=== PATIENT | male | born 1965 | race African-American/Black ===

== ENCOUNTER 2018-02-17 11:57 | Inpatient (IN) | payer OTHER ==
--- NOTE | 2018-02-17 12:13 | PDOC ---
History of Present Illness - General Chief Complaint: Constipation Stated Complaint: CONSTIPATION Time Seen by Provider: 02/17/18 12:05 History Source: Patient Exam Limitations: No Limitations - History of Present Illness Initial Comments: This is a 53 YOM with h/o chronic constipation with abdominal distention (on Milk of Magnesia, recently self-discontinued lactulose because he did not like the way it made him feel), GERD, DM, CAD, anemia, HTN, HLD, COPD, and multiple psychiatric issues (schizoaffective, bipolar, major depression, on multiple medications) who is BIBA from [facility] for acutely worsened constipation and abdominal distention. On discussion with SNF ambulatory services representative, the patient has been about 50% more distended today than his baseline distention , and has never before been this distended. He normally has a bowel movement about once every two days, and his last known BM was yesterday after a Fleet enema. His abodminal XR today at [facility] showed large amount of fecal matter in pattern suggestive of ileus, SBO cannot be ruled out. They deny any reported fever, vomiting, diarrhea, or reports of pain. Mother is his his HCP and patient reportedly has no capacity and is full code on his SNF records. Past History - Past Medical History Allergies/Adverse Reactions: Allergies Allergy/AdvReac Type Severity Reaction Status Date / Time No Known Allergies Allergy Verified 02/17/18 12:44 Home Medications: Ambulatory Orders Albuterol 2.5/Ipratropium 0.5 [Duoneb -] 1 neb NEB Q4H PRN #0 vial 11/21/13 Amino Acids/Protein Hydrolys [Prostat Sugar-Free Packet -] 30 ml GT TID #0 packet 11/21/13 Amox-Tr/K Cl [Augmentin 500-125mg Tablet -] 1 tab GT TID #14 tab 11/21/13 Ascorbic Acid [Vitamin C Oral Solution -] 500 mg PO DAILY #150 ml 11/21/13 Aspirin [ASA -] 81 mg GT DAILY #0 tab.chew 11/21/13 Azithromycin [Zithromax Tri-Fareed (3 DAYS) -] 500 mg GT DAILY #3 tablet 11/21/13 Docusate Sodium [Colace -] 200 mg PO HS #0 capsule 11/21/13 Enoxaparin [Lovenox -] 40 mg SQ DAILY #0 disp.syrin 11/21/13 Ferrous Sulfate 325 mg GT DAILY #0 tablet 11/21/13 Guaifenesin [Robitussin -] 10 ml GT QID #0 cup 11/21/13 Lactulose (Oral Use) [Cephulac -] 20 gm GT TID #0 ud 11/21/13 Mosses Carbonate [Eskalith -] 300 mg NR BID #0 capsule 11/21/13 Mirtazapine [Remeron -] 15 mg GT HS #0 tablet 11/21/13 Multivitamin [Daily Diet Support] 1 each GT DAILY #0 tablet 11/21/13 Multivitamins Liquid [Thera-Plus -] 5 ml GT DAILY #0 cup 11/21/13 Olanzapine [Zyprexa -] 20 mg GT HS #0 tablet 11/21/13 Ranitidine Oral Solution [Zantac Oral Solution -] 150 mg GT DAILY #0 cup Thiamine HCl [Vitamin B1 -] 100 mg NR DAILY #0 tablet 11/21/13 Zinc Sulfate [Orazinc -] 220 mg GT DAILY #0 capsule 11/21/13 Zolpidem Tartrate [Ambien] 10 mg PO HS #0 tablet 11/21/13 CVA: Yes GI Disorders: (PEG) HTN: Yes Psychiatric Problems: Yes (Depression,Schizoaffective disorder) - Surgical History GI Surgery: Yes (G Tube) - Immunization History Immunization Up to Date: Yes - Suicide/Smoking/Psychosocial Hx Smoking History: Former smoker Have you smoked in the past 12 months: No Hx Alcohol Use: No Substance Use Type: None Review of Systems - Review of Systems Able to Perform ROS?: Yes Constitutional: No: Fever, Unexplained wgt Loss HEENTM: No: Nose Congestion, Throat Pain Respiratory: Yes: Shortness of Breath. No: Cough Cardiac (ROS): No: Chest Pain, Palpitations ABD/GI: Yes: Constipated. No: Diarrhea, Vomiting : No: Burning, Dysuria Musculoskeletal: No: Back Pain, Neck Pain Integumentary: No: Bruising, Rash Neurological: No: Headache, Numbness, Tingling, Weakness, Dizziness Endocrine: No: Unexplained Weight Gain, Unexplained Weight Loss *Physical Exam - Physical Exam General Appearance: Yes: Nourished, Appropriately Dressed, Moderate Distress, Other (uncomfortable appearing adult male answering questions in 1-2 word answers and quite tachypneic, slurred speech impediment making it difficult to comprehend most of his answers) HEENT: positive: EOMI, ITZEL, Hearing Grossly Normal. negative: Scleral Icterus (R), Scleral Icterus (L), Nasal Congestion Neck: positive: Trachea midline, Supple. negative: Tender, Rigid Respiratory/Chest: positive: Lungs Clear, Respiratory Distress (mild-moderate), Decreased Breath Sounds (L worse than R). negative: Crackles, Rhonchi, Stridor Cardiovascular: positive: Regular Rhythm, S1, S2, Tachycardia. negative: Edema , JVD, Murmur Gastrointestinal/Abdominal: positive: Normal Bowel Sounds, Distended (markedly) , Other (abdomen quite tight). negative: Tender, Soft, Organomegaly, Pulsatile Mass, Guarding Musculoskeletal: positive: Normal Inspection. negative: Decreased Range of Motion, Vertebral Tenderness Extremity: positive: Normal Capillary Refill, Normal Inspection, Normal Range of Motion. negative: Tender, Cyanosis Integumentary: positive: Normal Color, Dry, Warm. negative: Erythema, Rash, Bruising Neurologic: positive: transfer worker II-XII NML intact (grossly), Alert, Normal Response, Motor Strength 5/5. negative: Fully Oriented, EOM Palsy, Facial Droop Heart Score/ECG Review #1 Sinus tachycardia, rate of 110, normal axis, QTc is 476, no ischemic changes. ED Treatment Course - LABORATORY CBC & Chemistry Diagram: 02/17/18 12:33 02/17/18 12:33 Medical Decision Making - Critical Care Time Total Critical Care Time (minutes): 45 Critical Care Statement: The care of this patient involved high complexity decision making to prevent further life threatening deterioration of the patient 's condition and/or to evaluate & treat vital organ system(s) failure or risk of failure. - Medical Decision Making Patient p/w severe constipation and abdominal distention. Initial Vital Signs Pulse Resp BP Pulse Ox 112 H 24 164/114 100 02/17/18 12:00 02/17/18 12:00 02/17/18 12:00 02/17/18 12:00 Exam: Markedly distended and tight abdomen, tympanic percussion throughout, tinkling bowel sounds, decreased lung sounds on left, poor air movement. DDX IBNLT severe constipation, SBO, colitis and bacteremia, sepsis, bowel perforation, abdominal compartment syndrome, ascites, SBP, sepsis. W/U ordered: Sepsis order set (full w/u), CT A/P with IV Contrast, Ammonia level TX ordered: Vancomycin, Zosyn, DuoNebs. 02/17/18 12:50 Dr. Miles has spoken with SNF ambulatory services representative and Dr. Urban who will evaluate the patient. Consult order has been placed to Dr. Urban. Lab calls and reports ABG results pH 7.2, CO2 67. EKG: Sinus tachycardia, rate of 110, normal axis, no ischemic changes. CXR: shallow inspiration, pulmonary vascular congestion. CT: Severe constipation/fecal impaction, bilateral lower lung consolidation and likely PNA. Laboratory Tests 02/17/18 02/17/18 02/17/18 12:33 12:33 12:33 WBC 19.7 H D RBC 4.79 Hgb 13.1 Hct 41.8 MCV 87.4 MCH 27.4 MCHC 31.4 L RDW 14.8 Plt Count 435 H D MPV 10.4 Neutrophils % 84.5 H Lymphocytes % 11.1 D Monocytes % 3.5 L Eosinophils % 0.1 Basophils % 0.8 PT with INR 13.20 H INR 1.17 H PTT (Actin FS) 41.4 H Anticoagulation Therapy Puncture Site ABG pH ABG pCO2 at Pt Temp ABG pO2 at Pt Temp ABG HCO3 ABG O2 Sat (Measured) ABG O2 Content ABG Base Excess Ruiz Test Carboxyhemoglobin Methemoglobin O2 Delivery Device Oxygen Flow Rate Vent Mode Vent Rate Mechanical Rate Pressure Support Vent Sodium 137 Potassium 4.7 Chloride 104 Carbon Dioxide 25 Anion Gap 8 BUN 12 Creatinine 0.8 D Creat Clearance w eGFR > 60 Random Glucose 110 H Lactic Acid Calcium 10.9 H Total Bilirubin 0.4 AST 101 H D ALT 67 D Alkaline Phosphatase 59 D Ammonia Creatine Kinase 156 Creatine Kinase Index 1.9 CK-MB (CK-2) 3.006 Troponin I Total Protein 9.2 H D Albumin 4.6 D Blood Type Antibody Screen 02/17/18 02/17/18 02/17/18 12:33 12:33 12:33 WBC RBC Hgb Hct MCV MCH MCHC RDW Plt Count MPV Neutrophils % Lymphocytes % Monocytes % Eosinophils % Basophils % PT with INR INR PTT (Actin FS) Anticoagulation Therapy No Result Required. Puncture Site Left radial ABG pH 7.20 L* ABG pCO2 at Pt Temp 67.0 H* ABG pO2 at Pt Temp 62.2 L ABG HCO3 25.4 ABG O2 Sat (Measured) 87.6 L ABG O2 Content 15.5 ABG Base Excess -3.5 L Ruiz Test No Result Required. Carboxyhemoglobin 1.6 Methemoglobin 1.2 O2 Delivery Device No Result Required. Oxygen Flow Rate No Result Required. Vent Mode No Result Required. Vent Rate No Result Required. Mechanical Rate No Result Required. Pressure Support Vent No Result Required. Sodium Potassium Chloride Carbon Dioxide Anion Gap BUN Creatinine Creat Clearance w eGFR Random Glucose Lactic Acid 2.6 H* Calcium Total Bilirubin AST ALT Alkaline Phosphatase Ammonia Creatine Kinase Creatine Kinase Index CK-MB (CK-2) Troponin I < 0.02 Total Protein Albumin Blood Type Antibody Screen 02/17/18 02/17/18 02/17/18 12:33 12:33 12:33 WBC RBC Hgb Hct MCV MCH MCHC RDW Plt Count MPV Neutrophils % Lymphocytes % Monocytes % Eosinophils % Basophils % PT with INR INR PTT (Actin FS) Anticoagulation Therapy Puncture Site ABG pH ABG pCO2 at Pt Temp ABG pO2 at Pt Temp ABG HCO3 ABG O2 Sat (Measured) ABG O2 Content ABG Base Excess Ruiz Test Carboxyhemoglobin Methemoglobin O2 Delivery Device Oxygen Flow Rate Vent Mode Vent Rate Mechanical Rate Pressure Support Vent Sodium Potassium Chloride Carbon Dioxide Anion Gap BUN Creatinine Creat Clearance w eGFR Random Glucose Lactic Acid Calcium Total Bilirubin AST ALT Alkaline Phosphatase Ammonia 65.79 H Creatine Kinase Creatine Kinase Index CK-MB (CK-2) 3.006 Troponin I Total Protein Albumin Blood Type Cancelled Antibody Screen Cancelled Dr. Urban comes to assess patient at bedside. Rectal disimpaction performed with marked amount of brown stool removed, passes large amount of gas. Patient reports significant relief of abdominal discomfort after disimpaction. Repeat abdominal exam much softer, no ttp, no guarding, no fluid wave. The patient is unsafe for discharge at this time. They require further hospital observation, workup, and treatment. Microblog sent to [facility] for admission. Spoke with [facility], in agreement patient to be admitted to Tele Inpatient Dr. Han. Decision to Admit order placed to [facility] covering attending. *DC/Admit/Observation/Transfer Diagnosis at time of Disposition: COPD exacerbation Pneumonia Qualifiers: Pneumonia type: due to unspecified organism Laterality: unspecified laterality Lung location: unspecified part of lung Qualified Code(s): J18.9 - Pneumonia, unspecified organism Constipation Qualifiers: Constipation type: unspecified constipation type Qualified Code(s): K59.00 - Constipation, unspecified Sepsis Qualifiers: Sepsis type: sepsis due to unspecified organism Qualified Code(s): A41.9 - Sepsis, unspecified organism - Discharge Dispostion Condition at time of disposition: Guarded Admit: Yes - Referrals - Patient Instructions - Post Discharge Activity
--- NOTE | 2018-02-17 12:49 | PDOC ---
Attending Attestation - Resident Resident Name: Abbie Garcia - ED Attending Attestation I have performed the following: I have examined & evaluated the patient, The case was reviewed & discussed with the resident, I agree w/resident's findings & plan, Exceptions are as noted - HPI HPI: 02/17/18 12:34 53-year-old male with past medical history of COPD, hypertension, diabetes, hyperlipidemia, coronary disease, schizoaffective disorder, bipolar disorder from snf [facility] presents with abdominal distention and constipation and shortness of breath. I have spoken and discussed the case with nurse Arlene at [facility]. The patient is typically constipated and moves his bowels every other day. The patient has when necessary orders for milk of magnesia if he does not move his bowels on the third day. The patient himself had self discontinued lactulose was constipation. Yesterday, the patient had a Fleet enema which helped moved his bowels. This morning, the same nurse had noticed that the patient's abdomen is significantly much more distended than usual in the patient's been constipated. He's been complaining about some abdominal discomfort but there was no fevers, nausea, vomiting. No fevers. The patient is speaking comfortably though he feels short of breath. Denies chest pain. Upon arrival to the ED, the patient's O2 sat fissures 78 on nasal cannula but 100% on nonrebreather. He is protecting his airway. The patient is full code according to the nurse but has no capacity to make decisions according to the paperwork. I had attempted to reach out to the patient's surrogate, Keyana Banegas, but was unable to reach her and left a voicemail to contact me. - Physicial Exam PE: 02/17/18 12:49 GENERAL: Awake, alert. Speaking in full sentences. HEAD: No signs of trauma EYES: PERRLA, EOMI, sclera anicteric, conjunctiva clear ENT: Auricles normal inspection, hearing grossly normal, nares patent, NECK: Normal ROM, supple LUNGS: Tight breath sounds, occasional crackles in lower bases bilaterally. HEART: Regular rate and rhythm, normal S1 and S2, no murmurs, rubs or gallops ABDOMEN: Significantly distended with discomfort elicited on palpation throughout. EXTREMITIES: Normal range of motion, no edema. NEUROLOGICAL: Cranial nerves II through XII grossly intact. SKIN: Warm, Dry, normal turgor, no rashes or lesions noted. - Critical Care Time Total Critical Care Time: 35 Critical Care Statement: The care of this patient involved high complexity decision making to prevent further life threatening deterioration of the patient 's condition and/or to evaluate & treat vital organ system(s) failure or risk of failure. - Medical Decision Making 02/17/18 12:56 Patient is significantly distended and likely constipation. Abdominal x-ray that was obtained today demonstrates significant distention with ileus but cannot rule out obstruction. The patient has a strong history of constipation. This may be contributing to his hypoxia which may be secondary to his COPD. The arterial blood gas suggests that he may be having COPD exacerbation with a pH is 7.2 and elevated carbon dioxide level. We will trial nebulizers. We'll obtain a CAT scan the abdomen pelvis. Differential includes constipation, Sterkel colitis. I had consulted general surgeon Dr. Urban in regards to his findings and potentially to rule out abdominal compartment syndrome. The patient otherwise is alert and generally comfortable despite his abnormal vital signs. Patient will need very close monitoring. And admission to the hospital. 02/17/18 15:14 CBC, BMP 02/17/18 12:33 02/17/18 12:33 CMP Sodium 137 mmol/L (136-145) 02/17/18 12:33 Potassium 4.7 mmol/L (3.5-5.1) 02/17/18 12:33 Chloride 104 mmol/L (98-107) 02/17/18 12:33 Carbon Dioxide 25 mmol/L (21-32) 02/17/18 12:33 Anion Gap 8 (8-16) 02/17/18 12:33 BUN 12 mg/dL (7-18) 02/17/18 12:33 Creatinine 0.8 mg/dL (0.7-1.3) D 02/17/18 12:33 Creat Clearance w eGFR > 60 (>60) 02/17/18 12:33 Random Glucose 110 mg/dL (74-106) H 02/17/18 12:33 Lactic Acid 2.6 mmol/L (0.0-2.0) H* 02/17/18 12:33 Calcium 10.9 mg/dL (8.5-10.1) H 02/17/18 12:33 Total Bilirubin 0.4 mg/dL (0.2-1.0) 02/17/18 12:33 AST 101 U/L (15-37) H D 02/17/18 12:33 ALT 67 U/L (12-78) D 02/17/18 12:33 Alkaline Phosphatase 59 U/L (45-117) D 02/17/18 12:33 Ammonia 65.79 umol/L (11-32) H 02/17/18 12:33 Creatine Kinase 156 IU/L (39-308) 02/17/18 12:33 Creatine Kinase Index 1.9 % (0.0-5.0) 02/17/18 12:33 CK-MB (CK-2) 3.006 ng/mL (0.5-3.6) 02/17/18 12:33 Troponin I < 0.02 ng/ml (0.00-0.05) 02/17/18 12:33 Total Protein 9.2 g/dl (6.4-8.2) H D 02/17/18 12:33 Albumin 4.6 g/dl (3.4-5.0) D 02/17/18 12:33 CT abdomen and pelvis with significant constipation. Dr. urban present at bedside. Fecal disimpaction performed with significant improvement in symptoms. Significant stool extracted. However, with WBC 19.7, elevated lactic acid, and SOB (now resolved on home O2) , will treat as reactive airway disease/COPD. Nebs, steroids, IV antibiotics. Cultures were obtained. Will admit patient to the hospital. Findings discussed with pt's mother Ms. Banegas [phone]. 02/17/18 15:33 Bilateral pneumonia. Will admit for IV antibiotics. Heart Score/ECG Review #1 ECG reviewed & interpreted by me at: 12:30 02/17/18 12:33 NSR 110, no std/bright, normal axis, normal intervals, QTC 476 msec
[2018-02-17 12:51] LABS: ARTERIAL BLD GAS O2 SATURATION 87.6 % (90-98.9); ARTERIAL BLOOD GAS BASE EXCESS -3.5 meq/l (-2-2); ARTERIAL BLOOD GAS PO2 62.2 mmHg (80-100); CARBOXYHEMOGLOBIN 1.6 gm% (0.5-2.0)
[2018-02-17 12:52] LABS: BASO % 0.8 % (0-2.0); EOS % 0.1 % (0-4.5); HEMATOCRIT 41.8 % (35.4-49); HEMOGLOBIN 13.1 GM/dL (11.7-16.9); LYMPH % 11.1 % (8-40); MCH 27.4 pg (25.7-33.7); MCHC 31.4 g/dl (32.0-35.9); MEAN CELL VOLUME 87.4 fl (80-96); MEAN PLT VOLUME 10.4 fl (7.5-11.1); MONO % 3.5 % (3.8-10.2); NEUT % 84.5 % (42.8-82.8); PLATELET COUNT 435 K/MM3 (134-434); RBC 4.79 M/mm3 (4.00-5.60); RDW 14.8 % (11.9-15.9); WHITE BLOOD COUNT 19.7 K/mm3 (4.0-10.0)
[2018-02-17] MEDS ORDERED: ALBUTEROL SO4 2.5/IPRATROPIUM 0.5 INH SOL 3 ML VIAL.NEB. NEB ONE (12:57)
--- NOTE | 2018-02-17 13:06 | CONSULT ---
Consult Consult Specialty:: general surgery Referred by:: trent Reason for Consultation:: abdominal distension - History of Present Illness Chief Complaint: abddominal distension/ constipation History of Present Illness: 53-year-old male with past medical history of COPD, hypertension, diabetes, hyperlipidemia, coronary disease, schizoaffective disorder, bipolar disorder from snf [facility] presents with abdominal distention and constipation and shortness of breath. I have spoken and discussed the case with nurse Arlene at [facility]. The patient is typically constipated and moves his bowels every other day. The patient has when necessary orders for milk of magnesia if he does not move his bowels on the third day. The patient himself had self discontinued lactulose was constipation. Yesterday, the patient had a Fleet enema which helped moved his bowels. This morning, the same nurse had noticed that the patient's abdomen is significantly much more distended than usual in the patient's been constipated. Ct scan shows significant colonic and rectal stool burden. We were asked to assess. - History Source History Provided By: Patient, Medical Record Limitations to Obtaining History: No Limitations - Alcohol/Substance Use Hx Alcohol Use: No - Smoking History Smoking history: Former smoker Have you smoked in the past 12 months: No Home Medications - Allergies Allergies/Adverse Reactions: Allergies Allergy/AdvReac Type Severity Reaction Status Date / Time No Known Allergies Allergy Verified 02/17/18 12:44 - Home Medications Home Medications: Ambulatory Orders Albuterol 2.5/Ipratropium 0.5 [Duoneb -] 1 neb NEB Q4H 02/17/18 Aspirin [ASA -] 81 mg PO DAILY 02/17/18 Cholecalciferol (Vitamin D3) [Vitamin D3] 1,000 unit PO DAILY 02/17/18 Fenofibrate Nanocrystallized [Triglide] 160 mg PO DAILY 02/17/18 [place] Carbonate [Eskalith -] 300 mg PO BID 02/17/18 Magnesium Hydroxide [Milk of Magnesia] 400 mg PO PRN 02/17/18 Melatonin/Pyridoxine HCl (B6) [Melatonin 3 mg Tablet] 1 each PO HS 02/17/18 Metformin HCl 500 mg PO BID 02/17/18 Olanzapine [Zyprexa] 20 mg PO DAILY 02/17/18 Review of Systems - Review of Systems Constitutional: denies: Chills, Fever Eyes: denies: Blind Spots, Recent Change in Vision HENT: denies: Difficult Swallowing, Throat Pain Neck: denies: Pain on Movement, Tenderness Cardiovascular: denies: Chest Pain, Palpitations Respiratory: denies: Cough, SOB Gastrointestinal: reports: Abdominal Pain, Bloating, Constipation Genitourinary: denies: Burning, Dysuria, Flank Pain Breasts: reports: No Symptoms Reported. denies: Pain Musculoskeletal: denies: Muscle Pain, Muscle Weakness Integumentary: denies: Lesions, Rash Neurological: denies: Syncope, Tremors Endocrine: denies: Unexplained Weight Gain, Unexplained Weight Loss Hematology/Lymphatic: denies: Easily Bruised, Excessive Bleeding Psychiatric: denies: Anxiety, Depression Physical Exam Vital Signs: Vital Signs Temperature Pulse Rate 112 H 02/17/18 12:00 Respiratory Rate 24 02/17/18 12:00 Blood Pressure 164/114 02/17/18 12:00 O2 Sat by Pulse Oximetry (%) 100 02/17/18 12:00 Constitutional: Yes: Well Nourished, No Distress Eyes: Yes: Conjunctiva Clear, EOM Intact HENT: Yes: Atraumatic, Normocephalic Neck: Yes: Supple, Trachea Midline Cardiovascular: Yes: Regular Rate and Rhythm, S1, S2 Respiratory: Yes: Regular, CTA Bilaterally Gastrointestinal: Yes: Normal Bowel Sounds, Soft, Distention ...Rectal Exam: Yes: Sphincter Tone Normal, Other (hard brown stool in the rectum, manually disimpacted) Renal/: No: CVA Tenderness - Left, CVA Tenderness - Right Imaging - Results Cat Scan: Report Reviewed, Image Reviewed (fecal impaction, significant stool burden entire colon) Problem List - Problems (1) Fecal impaction in rectum Assessment/Plan: 53yo male MMP presented with massive abdominal distension secondary to fecal impaction in the rectum. manually disimpacted at the bedside NPO and IVF hydration Correct electrolytes repeated disimpaction GI evaluation enemas and consider golytely PO Thank you for the opportunity to participate in the care of this patient. Code(s): K56.41 - FECAL IMPACTION (2) Schizo-affective schizophrenia Code(s): F25.0 - SCHIZOAFFECTIVE DISORDER, BIPOLAR TYPE (3) COPD exacerbation Code(s): J44.1 - CHRONIC OBSTRUCTIVE PULMONARY DISEASE W (ACUTE) EXACERBATION (4) Constipation Code(s): K59.00 - CONSTIPATION, UNSPECIFIED Qualifiers: Constipation type: unspecified constipation type Qualified Code(s): K59.00 - Constipation, unspecified
[2018-02-17 13:26] LABS: ALBUMIN 4.6 g/dl (3.4-5.0); ANION GAP 8 (8-16); BILIRUBIN,TOTAL 0.4 mg/dL (0.2-1.0); BLOOD UREA NITROGEN 12 mg/dL (7-18); CALCIUM 10.9 mg/dL (8.5-10.1); CHLORIDE 104 mmol/L (98-107); CO2 25 mmol/L (21-32); CREATININE 0.8 mg/dL (0.7-1.3); GLUCOSE,RANDOM 110 mg/dL (74-106); SGPT/ALT 67 U/L (12-78); SODIUM 137 mmol/L (136-145); TOT PROT 9.2 g/dl (6.4-8.2)
[2018-02-17 13:28] LABS: ALK PHOS 59 U/L (45-117)
[2018-02-17 13:29] LABS: POTASSIUM 4.7 mmol/L (3.5-5.1); SGOT/AST 101 U/L (15-37)
[2018-02-17 13:37] LABS: INR 1.17 (0.82-1.09); PROTHROMBIN TIME (PATIENT) 13.2 SEC (9.7-13.0)
[2018-02-17 13:40] LABS: ACTIVATED PTT 41.4 SECONDS (26.9-34.4)
[2018-02-17 13:48] VITALS: BMI 28.4
[2018-02-17] MEDS ORDERED: PIPERACILLIN/TAZOB 3.375 GM 3.375 GM in DEXTROSE 5%-WATER - 50 ML IVPB ONE ×2 (15:10→23:00)
[2018-02-17] MEDS ORDERED: PIPERACILLIN/TAZOB 3.375 GM 3.375 GM/50 ML BAG IVPB ONE ×2 (15:30→22:09)
[2018-02-17] MEDS ORDERED: VANCOMYCIN 1,500 MG in DEXTROSE 5%-WATER - 250 ML IVPB ONE (15:36)
[2018-02-17] MEDS ORDERED: VANCOMYCIN 1,500 MG in DEXTROSE 5%-WATER - 500 ML IVPB ONE (16:06)
[2018-02-17] MEDS ORDERED: ALBUTEROL SO4 2.5/IPRATROPIUM 0.5 INH SOL 3 ML VIAL.NEB. NEB PRN (16:23)
[2018-02-17] MEDS ORDERED: SODIUM CHLORIDE 1,000 ML IV SCH (16:30)
[2018-02-17] MEDS ORDERED: MAGNESIUM HYDROX 2400MG/30ML ORAL SUSPENSION 30 ML CUP PO PRN (16:34)
[2018-02-17] MEDS: INSULIN SLIDING SCALE (NOVOLOG) 1 VIAL SQ SCH ×2 (16:46→22:04)
--- NOTE | 2018-02-17 16:59 | HP ---
CHIEF COMPLAINT: Abdominal Distention PCP: Clarence Downey HISTORY OF PRESENT ILLNESS: 53 year old M with pmh of copd, htn, hld, dm, chronic constipation, CAD, schizoaffective disorder, and bipolar presented with abdominal distention and was disimpacted in the ER. Patient also hypoxic on presentation. Patient with increased sob and mild cough. History difficult to obtain 2/2 to patient's lethargy. ER course was notable for: (1) labs- leukocytosis (2) tachycardia (3) lactic acid Recent Travel: unsure PAST MEDICAL HISTORY: as per hpi PAST SURGICAL HISTORY: unsure Social History: Smoking: unsure Alcohol: unsure Drugs: unsure Family History: Allergies No Known Allergies Allergy (Verified 02/17/18 12:44) HOME MEDICATIONS: Home Medications Medication Instructions Recorded Albuterol 2.5/Ipratropium 0.5 1 neb NEB Q4H PRN #0 vial 11/21/13 [Duoneb -] Amino Acids/Protein Hydrolys 30 ml GT TID #0 packet 11/21/13 [Prostat Sugar-Free Packet -] Amox-Tr/K Cl [Augmentin 500-125mg 1 tab GT TID #14 tab 11/21/13 Tablet -] Ascorbic Acid [Vitamin C Oral 500 mg PO DAILY #150 ml 11/21/13 Solution -] Aspirin [ASA -] 81 mg GT DAILY #0 tab.chew 11/21/13 Azithromycin [Zithromax Tri-Fareed (3 500 mg GT DAILY #3 tablet 11/21/13 DAYS) -] Docusate Sodium [Colace -] 200 mg PO HS #0 capsule 11/21/13 Enoxaparin [Lovenox -] 40 mg SQ DAILY #0 disp.syrin 11/21/13 Ferrous Sulfate 325 mg GT DAILY #0 tablet 11/21/13 Guaifenesin [Robitussin -] 10 ml GT QID #0 cup 11/21/13 Lactulose (Oral Use) [Cephulac -] 20 gm GT TID #0 ud 11/21/13 [place] Carbonate [Eskalith -] 300 mg NR BID #0 capsule 11/21/13 Mirtazapine [Remeron -] 15 mg GT HS #0 tablet 11/21/13 Multivitamin [Daily Diet Support] 1 each GT DAILY #0 tablet 11/21/13 Multivitamins Liquid [Thera-Plus -] 5 ml GT DAILY #0 cup 11/21/13 Olanzapine [Zyprexa -] 20 mg GT HS #0 tablet 11/21/13 Ranitidine Oral Solution [Zantac 150 mg GT DAILY #0 cup 11/21/13 Oral Solution -] Thiamine HCl [Vitamin B1 -] 100 mg NR DAILY #0 tablet 11/21/13 Zinc Sulfate [Orazinc -] 220 mg GT DAILY #0 capsule 11/21/13 Zolpidem Tartrate [Ambien] 10 mg PO HS #0 tablet 11/21/13 REVIEW OF SYSTEMS CONSTITUTIONAL: Absent: fever, chills, diaphoresis, generalized weakness, malaise, loss of appetite, weight change HEENT: Absent: rhinorrhea, nasal congestion, throat pain, throat swelling, difficulty swallowing, mouth swelling, ear pain, eye pain, visual changes CARDIOVASCULAR: Absent: chest pain, syncope, palpitations, irregular heart rate, lightheadedness , peripheral edema RESPIRATORY: Absent: cough, shortness of breath, dyspnea with exertion, orthopnea, wheezing, stridor, hemoptysis GASTROINTESTINAL: Absent: abdominal pain, abdominal distension, nausea, vomiting, diarrhea, constipation, melena, hematochezia GENITOURINARY: Absent: dysuria, frequency, urgency, hesitancy, hematuria, flank pain, genital pain MUSCULOSKELETAL: Absent: myalgia, arthralgia, joint swelling, back pain, neck pain SKIN: Absent: rash, itching, pallor HEMATOLOGIC/IMMUNOLOGIC: Absent: easy bleeding, easy bruising, lymphadenopathy, frequent infections ENDOCRINE: Absent: unexplained weight gain, unexplained weight loss, heat intolerance, cold intolerance NEUROLOGIC: Absent: headache, focal weakness or paresthesias, dizziness, unsteady gait, seizure, mental status changes, bladder or bowel incontinence PSYCHIATRIC: Absent: anxiety, depression, suicidal or homicidal ideation, hallucinations. PHYSICAL EXAMINATION Vital Signs - 24 hr 02/17/18 02/17/18 02/17/18 12:00 12:01 12:14 Temperature 99.0 F Pulse Rate 112 H 104 H Respiratory 24 34 H Rate Blood Pressure 164/114 135/113 O2 Sat by Pulse 100 81 L Oximetry (%) 02/17/18 13:11 Temperature 99.0 F Pulse Rate 102 H Respiratory 15 Rate Blood Pressure 140/110 O2 Sat by Pulse 100 Oximetry (%) GENERAL: Awake, alert, appears uncomfortable, Difficult to understand HEAD: Normal with no signs of trauma. EYES: Extraocular movements intact, sclera anicteric, conjunctiva clear. No lid lag. EARS, NOSE, THROAT: Oropharynx clear without exudates. Dry mucous membranes. NECK: Normal range of motion, supple without lymphadenopathy, JVD, or masses. LUNGS: Breath sounds decreased at bases, mild wheezing bilaterally. No accessory muscle use HEART: Regular rhythm, tachycardic, normal S1 and S2 without murmur, rub or gallop. ABDOMEN: Soft, nontender, not distended, normoactive bowel sounds, no guarding, no rebound, no masses. No hepatomegaly or splenomegaly. MUSCULOSKELETAL: No CVA tenderness. UPPER EXTREMITIES: 2+ pulses, warm, well-perfused. No cyanosis. No clubbing. No peripheral edema. LOWER EXTREMITIES: 2+ pulses, warm, well-perfused. No calf tenderness. No peripheral edema. Laboratory Results - last 24 hr 02/17/18 02/17/18 02/17/18 12:33 12:33 12:33 WBC 19.7 H D RBC 4.79 Hgb 13.1 Hct 41.8 MCV 87.4 MCH 27.4 MCHC 31.4 L RDW 14.8 Plt Count 435 H D MPV 10.4 Neutrophils % 84.5 H Lymphocytes % 11.1 D Monocytes % 3.5 L Eosinophils % 0.1 Basophils % 0.8 PT with INR 13.20 H INR 1.17 H PTT (Actin FS) 41.4 H Anticoagulation Therapy Puncture Site ABG pH ABG pCO2 at Pt Temp ABG pO2 at Pt Temp ABG HCO3 ABG O2 Sat (Measured) ABG O2 Content ABG Base Excess Ruiz Test Carboxyhemoglobin Methemoglobin O2 Delivery Device Oxygen Flow Rate Vent Mode Vent Rate Mechanical Rate Pressure Support Vent Sodium 137 Potassium 4.7 Chloride 104 Carbon Dioxide 25 Anion Gap 8 BUN 12 Creatinine 0.8 D Creat Clearance w eGFR > 60 Random Glucose 110 H Lactic Acid Calcium 10.9 H Total Bilirubin 0.4 AST 101 H D ALT 67 D Alkaline Phosphatase 59 D Ammonia Creatine Kinase 156 Creatine Kinase Index 1.9 CK-MB (CK-2) 3.006 Troponin I Total Protein 9.2 H D Albumin 4.6 D Blood Type Antibody Screen 02/17/18 02/17/18 02/17/18 12:33 12:33 12:33 WBC RBC Hgb Hct MCV MCH MCHC RDW Plt Count MPV Neutrophils % Lymphocytes % Monocytes % Eosinophils % Basophils % PT with INR INR PTT (Actin FS) Anticoagulation Therapy No Result Required. Puncture Site Left radial ABG pH 7.20 L* ABG pCO2 at Pt Temp 67.0 H* ABG pO2 at Pt Temp 62.2 L ABG HCO3 25.4 ABG O2 Sat (Measured) 87.6 L ABG O2 Content 15.5 ABG Base Excess -3.5 L Ruiz Test No Result Required. Carboxyhemoglobin 1.6 Methemoglobin 1.2 O2 Delivery Device No Result Required. Oxygen Flow Rate No Result Required. Vent Mode No Result Required. Vent Rate No Result Required. Mechanical Rate No Result Required. Pressure Support Vent No Result Required. Sodium Potassium Chloride Carbon Dioxide Anion Gap BUN Creatinine Creat Clearance w eGFR Random Glucose Lactic Acid 2.6 H* Calcium Total Bilirubin AST ALT Alkaline Phosphatase Ammonia Creatine Kinase Creatine Kinase Index CK-MB (CK-2) Troponin I < 0.02 Total Protein Albumin Blood Type Antibody Screen 02/17/18 02/17/18 02/17/18 12:33 12:33 12:33 WBC RBC Hgb Hct MCV MCH MCHC RDW Plt Count MPV Neutrophils % Lymphocytes % Monocytes % Eosinophils % Basophils % PT with INR INR PTT (Actin FS) Anticoagulation Therapy Puncture Site ABG pH ABG pCO2 at Pt Temp ABG pO2 at Pt Temp ABG HCO3 ABG O2 Sat (Measured) ABG O2 Content ABG Base Excess Ruiz Test Carboxyhemoglobin Methemoglobin O2 Delivery Device Oxygen Flow Rate Vent Mode Vent Rate Mechanical Rate Pressure Support Vent Sodium Potassium Chloride Carbon Dioxide Anion Gap BUN Creatinine Creat Clearance w eGFR Random Glucose Lactic Acid Calcium Total Bilirubin AST ALT Alkaline Phosphatase Ammonia 65.79 H Creatine Kinase Creatine Kinase Index CK-MB (CK-2) 3.006 Troponin I Total Protein Albumin Blood Type Cancelled Antibody Screen Cancelled ASSESSMENT/PLAN: 53 year old M with multiple medical comorbidities presented with abdominal distention and sob #Severe sepsis 2/2 to bilateral pneumonia -ns @ 75 cc/hr -repeat lactic acid -zosyn 3.375 q8h -ID consult -monitor respiratory status #Acute hypercapnic hypoxemic respiratory failure -Duonebs prn/donnie qid -o2 as needed to maintain sats -pulmonary consult #Constipation with elevated ammonia level -milk of mag -lactulose 20 mg tid prn #CAD -continue aspirin #DM -bgm -iss -avoid hypoglycemic events -hold oral hypoglycemics #Bipolar d/o -continue lithium and zyprexa -will check lithium level #FEN/GI -IVF @ 75 cc/hr -wnl -diabetic diet #PPx -Heparin sq q8h #Dispo: Adm M/S Mother is health care proxy and patient has no decision making capacity Home meds were confirmed with Clarence on Downey paperwork Pt's mother Ms. Banegas [phone] Visit type - Emergency Visit Emergency Visit: Yes ED Registration Date: 02/17/18 Care time: The patient presented to the Emergency Department on the above date and was hospitalized for further evaluation of their emergent condition. - New Patient This patient is new to me today: Yes Date on this admission: 02/17/18 - Critical Care Critical Care patient: No Hospitalist Screening - Colonoscopy Questionnaire Colonoscopy Questionnaire: Colonoscopy Questionnaire - Patient: 50 - 75 years old and never had a screening colonoscopy: Unknown History of colon or rectal polyps, or CA: Unknown History of IBD, Crohn's disease or UC: Unknown History of abdominal radiation therapy as a child: Unknown - Relative: 1 with colon or rectal CA, or polyps at age 60 or younger: Unknown Colon or rectal CA diagnosed at age 45 or younger: Unknown Multiple relatives with colon or rectal CA: Unknown - Outcome: Screening Result: Negative Screen
[2018-02-17] MEDS ORDERED: LACTULOSE 20 GM/30 ML UDC (FOR ORAL USE ONLY) PO PRN (17:11)
--- NOTE | 2018-02-17 19:29 | PN ---
Teaching Attending Note Name of Resident: Isaac Huber ATTENDING PHYSICIAN STATEMENT I saw and evaluated the patient. I reviewed the resident's note and discussed the case with the resident. I agree with the resident's findings and plan as documented. SUBJECTIVE: Patient presented with Shortness of breath. patient can't give any history. OBJECTIVE: Vital Signs Temperature 98.0 F 02/17/18 16:23 Pulse Rate 88 02/17/18 17:52 Respiratory Rate 16 02/17/18 17:52 Blood Pressure 102/65 02/17/18 17:52 O2 Sat by Pulse Oximetry (%) 92 L 02/17/18 17:52 CBCD WBC 19.7 K/mm3 (4.0-10.0) H D 02/17/18 12:33 RBC 4.79 M/mm3 (4.00-5.60) 02/17/18 12:33 Hgb 13.1 GM/dL (11.7-16.9) 02/17/18 12:33 Hct 41.8 % (35.4-49) 02/17/18 12:33 MCV 87.4 fl (80-96) 02/17/18 12:33 MCHC 31.4 g/dl (32.0-35.9) L 02/17/18 12:33 RDW 14.8 % (11.9-15.9) 02/17/18 12:33 Plt Count 435 K/MM3 (134-434) H D 02/17/18 12:33 MPV 10.4 fl (7.5-11.1) 02/17/18 12:33 CMP Sodium 137 mmol/L (136-145) 02/17/18 12:33 Potassium 4.7 mmol/L (3.5-5.1) 02/17/18 12:33 Chloride 104 mmol/L (98-107) 02/17/18 12:33 Carbon Dioxide 25 mmol/L (21-32) 02/17/18 12:33 Anion Gap 8 (8-16) 02/17/18 12:33 BUN 12 mg/dL (7-18) 02/17/18 12:33 Creatinine 0.8 mg/dL (0.7-1.3) D 02/17/18 12:33 Creat Clearance w eGFR > 60 (>60) 02/17/18 12:33 Random Glucose 110 mg/dL (74-106) H 02/17/18 12:33 Calcium 10.9 mg/dL (8.5-10.1) H 02/17/18 12:33 Total Bilirubin 0.4 mg/dL (0.2-1.0) 02/17/18 12:33 AST 101 U/L (15-37) H D 02/17/18 12:33 ALT 67 U/L (12-78) D 02/17/18 12:33 Alkaline Phosphatase 59 U/L (45-117) D 02/17/18 12:33 Total Protein 9.2 g/dl (6.4-8.2) H D 02/17/18 12:33 Albumin 4.6 g/dl (3.4-5.0) D 02/17/18 12:33 CARDIAC ENZYMES Creatine Kinase 156 IU/L (39-308) 02/17/18 12:33 Troponin I < 0.02 ng/ml (0.00-0.05) 02/17/18 12:33 Current Medications Generic Name Dose Route Start Last Admin Trade Name Freq PRN Reason Stop Dose Admin Albuterol/Ipratropium 1 amp 02/17/18 20:00 Duoneb - NEB RQID YUNIEL Albuterol/Ipratropium 1 amp 02/17/18 16:23 Duoneb - NEB Q4H PRN SHORTNESS OF BREATH Aspirin 81 mg 02/18/18 10:00 Ecotrin - PO DAILY YUNIEL Heparin Sodium (Porcine) 5,000 unit 02/17/18 22:00 Heparin - SQ TID YUNIEL Sodium Chloride 1,000 mls @ 75 mls/hr 02/17/18 16:30 02/17/18 17:30 Normal Saline - IV 75 mls/hr ASDIR YUNIEL Administration Piperacillin Sod/Tazobactam 50 mls @ 100 mls/hr 02/17/18 23:00 Sod 3.375 gm/ Dextrose IVPB 02/17/18 23:29 ONCE ONE Protocol Insulin Aspart 1 vial 02/17/18 16:30 02/17/18 16:46 Novolog Vial Sliding Scale - SQ Not Given ACHS YUNIEL Protocol Lactulose 20 gm 02/17/18 17:11 Cephulac (Oral Use) PO Q8H PRN CONSTIPATION Lamotrigine 25 mg 02/17/18 22:00 Lamictal - PO BID YUNIEL [place] Carbonate 300 mg 02/17/18 22:00 Eskalith - PO BID YUNIEL Magnesium Hydroxide 30 ml 02/17/18 16:34 Milk Of Magnesia - PO Q8H PRN INDIGESTION Melatonin 3 mg 02/17/18 22:00 Melatonin PO HS [facility] Home Medications Medication Instructions Recorded Albuterol 2.5/Ipratropium 0.5 1 neb NEB Q4H 02/17/18 [Duoneb -] Aspirin [ASA -] 81 mg PO DAILY 02/17/18 Cholecalciferol (Vitamin D3) 1,000 unit PO DAILY 02/17/18 [Vitamin D3] Fenofibrate Nanocrystallized 160 mg PO DAILY 02/17/18 [Triglide] [place] Carbonate [Eskalith -] 300 mg PO BID 02/17/18 Magnesium Hydroxide [Milk of 400 mg PO PRN 02/17/18 Magnesia] Melatonin/Pyridoxine HCl (B6) 1 each PO HS 02/17/18 [Melatonin 3 mg Tablet] Metformin HCl 500 mg PO BID 02/17/18 Olanzapine [Zyprexa] 20 mg PO DAILY 02/17/18 PE: GENERAL: Awake, alert, appears uncomfortable, Difficult to understand HEAD: Normal with no signs of trauma. EYES: Extraocular movements intact, sclera anicteric, conjunctiva clear. No lid lag. EARS, NOSE, THROAT: Oropharynx clear without exudates. Dry mucous membranes. NECK: Normal range of motion, supple without lymphadenopathy, JVD, or masses. LUNGS: Breath sounds decreased at bases, mild wheezing bilaterally. No accessory muscle use HEART: Regular rhythm, tachycardic, normal S1 and S2 without murmur, rub or gallop. ABDOMEN: Soft, nontender, not distended, normoactive bowel sounds, no guarding, no rebound, no masses. No hepatomegaly or splenomegaly. MUSCULOSKELETAL: No CVA tenderness. EXTREMITIES: 2+ pulses, warm, well-perfused. No calf tenderness. No peripheral edema. ASSESSMENT AND PLAN: Patient is 53 year old M with pmhx of copd, htn, hld, dm, chronic constipation, CAD, schizoaffective disorder, and bipolar presented with abdominal distention and was disimpacted in the ER. Patient was found to be hypoxic in ED. presneted with increased sob and mild cough. Patient is from [facility] #Acute hypercapnic hypoxemic respiratory failure on Bipap prn. Neb treatment #Severe sepsis due to bilateral pneumonia on IV antibiotic Zosyn and vANCO. iD CONSULTED # BL Pneumonia on Zosyn and Vancomycin # Elevated ammonia level increased the dose of lactulose # Hx of constipation with elevated ammonia level was disimpacted in the ER #CAD continue aspirin #DM BGMs #Bipolar d/o continue lithium and zyprexa and Lamictal a mood stabilizer #PPx: Heparin sq q8h Mother is health care proxy and patient has no decision making capacity Home meds were confirmed with Clarence Downey paperwork Pt's mother Ms. Banegas [phone]
[2018-02-17] MEDS: ALBUTEROL SO4 2.5/IPRATROPIUM 0.5 INH SOL 3 ML VIAL.NEB. NEB SCH (20:09)
[2018-02-17 21:07] LABS: URINE APPEARANCE CLEAR; URINE BILIRUBIN NEGATIVE (<2.0 mg/dL); URINE BLOOD NEGATIVE (NEGATIVE); URINE COLOR STRAW; URINE GLUCOSE (UA) NEGATIVE (NEGATIVE); URINE KETONE NEGATIVE (NEGATIVE); URINE LEUK ESTERASE NEGATIVE (NEGATIVE); URINE NITRITE NEGATIVE (NEGATIVE); URINE PROTEIN NEGATIVE (NEGATIVE); URINE UROBILINOGEN NEGATIVE mg/dL (0.2-1.0)
[2018-02-17] MEDS ORDERED: HEPARIN NA (PORCINE) 5,000 UNITS/ML 1ML VIAL ONE (22:08)
[2018-02-17] MEDS ORDERED: lamoTRIgine 25 MG TABLET ONE (22:08)
[2018-02-17] MEDS: HEPARIN NA (PORCINE) 5,000 UNITS/ML 1ML VIAL SQ SCH (22:11)
[2018-02-17] MEDS: LITHIUM CARBONATE 300 MG CAPSULE (FP) PO SCH (22:11)
[2018-02-17] MEDS: lamoTRIgine 25 MG TABLET PO SCH (22:11)
[2018-02-17] MEDS: MELATONIN 1 MG TABLET PO SCH (22:11)
[2018-02-18] MEDS ORDERED: HEPARIN NA (PORCINE) 5,000 UNITS/ML 1ML VIAL ONE (05:58)
[2018-02-18] MEDS: HEPARIN NA (PORCINE) 5,000 UNITS/ML 1ML VIAL SQ SCH ×3 (06:01→21:41)
[2018-02-18] MEDS: INSULIN SLIDING SCALE (NOVOLOG) 1 VIAL SQ SCH ×4 (06:20→21:40)
[2018-02-18 07:31] LABS: BASO % 0.2 % (0-2.0); EOS % 1.5 % (0-4.5); HEMATOCRIT 31.5 % (35.4-49); LYMPH % 12.3 % (8-40); MCH 27.3 pg (25.7-33.7); MCHC 31.6 g/dl (32.0-35.9); MEAN CELL VOLUME 86.3 fl (80-96); MEAN PLT VOLUME 9.5 fl (7.5-11.1); MONO % 6.5 % (3.8-10.2); NEUT % 79.5 % (42.8-82.8); PLATELET COUNT 322 K/MM3 (134-434); RBC 3.65 M/mm3 (4.00-5.60); RDW 14.3 % (11.9-15.9); WHITE BLOOD COUNT 13.8 K/mm3 (4.0-10.0)
[2018-02-18 07:58] LABS: ALBUMIN 2.9 g/dl (3.4-5.0); ANION GAP 2 (8-16); BLOOD UREA NITROGEN 6 mg/dL (7-18); CALCIUM 8.8 mg/dL (8.5-10.1); CHLORIDE 113 mmol/L (98-107); CO2 32 mmol/L (21-32); GLUCOSE,RANDOM 96 mg/dL (74-106); MAGNESIUM 2.2 mg/dL (1.8-2.4); POTASSIUM 4.2 mmol/L (3.5-5.1); SODIUM 147 mmol/L (136-145)
[2018-02-18] MEDS: ALBUTEROL SO4 2.5/IPRATROPIUM 0.5 INH SOL 3 ML VIAL.NEB. NEB SCH ×2 (07:59→16:45)
[2018-02-18 08:02] LABS: ALK PHOS 35 U/L (45-117); BILIRUBIN,TOTAL 0.3 mg/dL (0.2-1.0); CREATININE 0.5 mg/dL (0.7-1.3); PHOSPHOROUS 2.8 mg/dL (2.5-4.9); SGOT/AST 59 U/L (15-37); SGPT/ALT 50 U/L (12-78); TOT PROT 5.8 g/dl (6.4-8.2)
--- NOTE | 2018-02-18 08:37 | PN ---
Progress Note (short form) - Note Progress Note: ID Full note dictated Microbiology Selected Entries 02/18/18 02/18/18 05:00 06:57 Temperature 98 F Pulse Rate [ 75 Apical] Respiratory 18 Rate Blood Pressure 103/47 [Right Arm] Laboratory Tests 02/17/18 02/17/18 02/17/18 12:33 12:33 12:33 WBC 19.7 H D Hgb Hct Plt Count ABG pH 7.20 L* BUN Creatinine Lactic Acid AST 101 H D ALT 67 D Alkaline Phosphatase 59 D 02/17/18 02/18/18 02/18/18 19:28 07:15 07:15 WBC 13.8 H Hgb 10.0 L D Hct 31.5 L D Plt Count 322 D ABG pH BUN Pending Creatinine Pending Lactic Acid 3.9 H* AST ALT Alkaline Phosphatase Advise Would observe off antibiotics Leukocytosis secondary to impaction Plan Observe off antibiotics Carrington STEVENS Problem List - Problems (1) Pneumonia Code(s): J18.9 - PNEUMONIA, UNSPECIFIED ORGANISM Qualifiers: Pneumonia type: due to unspecified organism Laterality: unspecified laterality Lung location: unspecified part of lung Qualified Code(s): J18.9 - Pneumonia, unspecified organism (2) Sepsis Code(s): A41.9 - SEPSIS, UNSPECIFIED ORGANISM Qualifiers: Sepsis type: sepsis due to unspecified organism Qualified Code(s): A41.9 - Sepsis, unspecified organism
--- NOTE | 2018-02-18 09:56 | CONS ---
DATE OF CONSULTATION: DATE OF DICTATION: 02/18/2018 INFECTIOUS DISEASE CONSULT HISTORY OF PRESENT ILLNESS: This is a 53-year-old male who I am asked to see for elevated white count. The patient has multiple comorbidities and is apparently a resident of [facility]. He has COPD, hypertension, hyperlipidemia, diabetes, chronic obstipation, coronary artery disease, bipolar disease, and schizoaffective disorder. He apparently has chronic constipation and presented with abdominal distention and was seen by Surgery and required disimpaction. He was also hypoxic on admission. He had an elevated white count but had no fever. Currently, he appears quite comfortable on a stretcher and is in no acute distress. PAST MEDICAL HISTORY: As noted above. CURRENT MEDICATIONS: Include aspirin, iron, lithium, Remeron. ALLERGIES: None known. SOCIAL HISTORY: Unable to provide, smoking, alcohol, drug history. FAMILY HISTORY: Unable to provide. REVIEW OF SYSTEMS: Respiratory: No shortness of breath or cough. Cardiac: Denies chest pain, palpitations, syncope. Gastrointestinal: Currently no abdominal pain. No vomiting, diarrhea, blood per rectum, hematemesis. Genitourinary: No dysuria or hematuria. PHYSICAL EXAMINATION: General: He was an alert male lying on a stretcher. Vital Signs: Temperature 98 degrees, pulse 75, blood pressure 103/47, respirations 18, O2 saturations 97%. Neck: Supple. Lungs: Clear to P and A. Heart: S1, S2. Regular rhythm without audible murmur. Abdomen: Positive bowel sounds, soft, not distended. No guarding or rebound. No localized tenderness. No hepatosplenomegaly. Extremities: No clubbing, cyanosis, or edema. LABORATORY DATA: The white count originally 19.7 is now 13.8, hemoglobin 10, platelets of 332 with 79% polys, 12 lymphs, and 6 monos. ABG 7.20, PCO2 of 67, PO2 of 62. BUN of 6, creatinine 0.5. Liver enzymes within normal limits. Urinalysis screening negative. Blood and urine cultures pending. Abdominal CT scan shows fecal impaction with dilated colon, no free air. ASSESSMENT: Leukocytosis, most likely secondary to fecal impaction seen by Surgery with disimpaction with clinical improvement and white count appears on the way down. He has no fever, does not appear toxic. He has elevated lactic acid levels most likely on the bases of his chronic obstructive pulmonary disease and hypercarbic acidosis. PLAN: No antibiotics to be given now. Patient received a dose of vancomycin and Zosyn in the emergency room, but I am not going to continue this now unless he has positive cultures. BRAYAN CEBALLOS M.D. [id number]
[2018-02-18] MEDS: ASPIRIN COATED 81 MG TABLET.EC PO SCH (10:43)
[2018-02-18] MEDS: lamoTRIgine 25 MG TABLET PO SCH ×2 (10:43→21:41)
[2018-02-18] MEDS: SODIUM CHLORIDE 1,000 ML IV SCH ×2 (10:43→20:30)
--- NOTE | 2018-02-18 12:26 | EKG ---
Test Reason : Blood Pressure : / mmHG Vent. Rate : 110 BPM Atrial Rate : 110 BPM P-R Int : 144 ms QRS Dur : 088 ms QT Int : 352 ms P-R-T Axes : 064 065 033 degrees QTc Int : 476 ms SINUS TACHYCARDIA OTHERWISE NORMAL ECG WHEN COMPARED WITH ECG OF 18-NOV-2013 11:25, NONSPECIFIC T WAVE ABNORMALITY HAS IMPROVED Confirmed by ADENIKE UREÑA MD ([id number]) on 02/18/2018 12:26:30 PM Referred By: Confirmed By:ADENIKE UREÑA MD
--- NOTE | 2018-02-18 12:53 | PN ---
Progress Note (short form) - Note Progress Note: PULMONARY CONSULTATION DICTATED 02/18/18 IMP ACUTE HYPOXEMIC/HYPERCAPNEIC RESPIRATORY FAILURE,COPD,MARKED ABDOMINAL DISTENTION CHRONIC CONSTIPATION,FECAL IMPACTION COPD BIBASILAR CONSOLIDATIONS LIKELY SECONDARY TO ATELECTASIS ELEVATED LACTATE LEVEL ASHD SCHIZO-AFFECTIVE DISORDER HTN HLD PLAN INHALED BRONCHODILATORS O2 NIPPV IF PT DEVELOPES RESPIRATOR DISTRESS DISIMPACTION,ENEMAS GI EVALUATION F/U ABGS F/U CHEST X-RAYS TREND LACTATE IVF DR TREADWELL Problem List - Problems (1) Acute respiratory failure with hypoxia and hypercarbia Code(s): J96.01 - ACUTE RESPIRATORY FAILURE WITH HYPOXIA; J96.02 - ACUTE RESPIRATORY FAILURE WITH HYPERCAPNIA (2) COPD exacerbation Code(s): J44.1 - CHRONIC OBSTRUCTIVE PULMONARY DISEASE W (ACUTE) EXACERBATION (3) Constipation Code(s): K59.00 - CONSTIPATION, UNSPECIFIED Qualifiers: Constipation type: unspecified constipation type Qualified Code(s): K59.00 - Constipation, unspecified (4) Fecal impaction in rectum Code(s): K56.41 - FECAL IMPACTION (5) Schizo-affective schizophrenia Code(s): F25.0 - SCHIZOAFFECTIVE DISORDER, BIPOLAR TYPE
[2018-02-18] MEDS: LITHIUM CARBONATE 300 MG CAPSULE (FP) PO SCH ×2 (13:34→21:42)
--- NOTE | 2018-02-18 13:46 | CONS ---
DATE OF CONSULTATION: 02/18/2018 REFERRING PHYSICIAN: Gregg Han MD HISTORY: The history is obtained from the chart. The patient is a poor historian. The patient is a 53-year-old black male with past medical history of COPD, hypertension, hyperlipidemia, diabetes, chronic constipation, ASHD, schizoaffective disorder, bipolar admitted to [facility] from [facility] secondary to abdominal distention. The patient apparently was disimpacted in the ER. He was also noted on admission to be hypoxic. He had a blood gas performed, which revealed an acute hypercapnic respiratory failure. He was transferred to the medical floor for further management. On admission, he is evaluated by Dr. Urban for surgical consultation and felt that the abdominal distention was secondary to massive fecal impaction. He was started on IV fluids as well as repeated disimpaction, enemas, and GoLYTELY. Of note, he has undergone a CT of the chest and abdomen, which revealed evidence of bibasilar consolidation with surgery dilated colon with a large amount of fecal residue. There is moderate elevation of left hemidiaphragm and bibasilar consolidation/pneumonia and/or atelectasis. The patient has a history of smoking and apparently still smokes. 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 At the current time, he was any shortness of breath. Denies any cough or chest congestion. PAST MEDICAL HISTORY: Again includes chronic constipation, abdominal distention, GERD, diabetes, ASHD, anemia, hyperlipidemia, hypertension, COPD, multiple psychiatric issues, schizoaffective disorder, major depression. CURRENT MEDICATIONS: Include lactulose, heparin, Lamictal, Eskalith, DuoNeb, Milk of Magnesia, NovoLog, Ecotrin, melatonin. REVIEW OF SYSTEMS: Denies shortness of breath. Denies any chest pain. Denies any cough, hemoptysis. Positive abdominal distention. No abdominal pain. No lower extremity edema. PHYSICAL EXAMINATION: General: The patient is a well-developed, well-nourished male awake in no acute distress. Vital Signs: He is afebrile. Blood pressure 96/58, respiratory rate 18, O2 saturation 98% on 2 L. HEENT: Normocephalic and atraumatic. Neck: Supple. Heart: Regular S1, S2. Chest: Clear. Abdomen: Distended. Bowel sounds are present. Extremities: No cyanosis or edema. LABORATORIES: WBCs 13.8, hemoglobin 10, hematocrit 31.5 with a platelets 322,000, INR 1.17. Blood gas: PH 7.2, PCO2 of 67, PO2 of 62, bicarbonate 25, and saturation 87. Chemistries: BUN 6, creatinine 0.5, lactate level initially 3.9, currently 2.4. Chest x-ray reveals poor inspiratory effort, elevated left hemidiaphragm. IMPRESSION: Acute hypoxemic, hypercapnic respiratory failure likely secondary to multiple factors: 1. Likely underlying chronic obstructive pulmonary disease. 2. Marked abdominal distention secondary to fecal impaction. 3. Arteriosclerotic heart disease. 4. Schizoaffective disorder. 5. Hypertension. 6. Hyperlipidemia. PLAN: Inhaler bronchodilators. Supplemental O2. Continue GI workup as per Surgery. Obtain follow up arterial blood gases. Antibiotics as per infectious disease. HENRI TREADWELL M.D. [id number]
--- NOTE | 2018-02-18 13:53 | PN ---
<Isaac Huber - Last Filed: 02/18/18 16:31> Physical Exam: SUBJECTIVE: Patient seen and examined No events overnight. Patient feels better this morning. OBJECTIVE: Vital Signs Period Temp Pulse Resp BP Sys/Pete Pulse Ox Last 24 Hr 98 F-98.0 F 67-100 16-19 96-113/47-80 92-100 GENERAL: Awake, alert, appears uncomfortable, Difficult to understand HEAD: Normal with no signs of trauma. EYES: Extraocular movements intact, sclera anicteric, conjunctiva clear. No lid lag. EARS, NOSE, THROAT: Oropharynx clear without exudates. Dry mucous membranes. NECK: Normal range of motion, supple without lymphadenopathy, JVD, or masses. LUNGS: Breath sounds decreased at bases, mild wheezing bilaterally. No accessory muscle use HEART: Regular rhythm, tachycardic, normal S1 and S2 without murmur, rub or gallop. ABDOMEN: Soft, nontender, not distended, normoactive bowel sounds, no guarding, no rebound, no masses. No hepatomegaly or splenomegaly. MUSCULOSKELETAL: No CVA tenderness. UPPER EXTREMITIES: 2+ pulses, warm, well-perfused. No cyanosis. No clubbing. No peripheral edema. LOWER EXTREMITIES: 2+ pulses, warm, well-perfused. No calf tenderness. No peripheral edema. Laboratory Results - last 24 hr 02/17/18 02/17/18 02/17/18 12:33 12:33 16:45 WBC RBC Hgb Hct MCV MCH MCHC RDW Plt Count MPV Neutrophils % Lymphocytes % Monocytes % Eosinophils % Basophils % Sodium Potassium Chloride Carbon Dioxide Anion Gap BUN Creatinine Creat Clearance w eGFR POC Glucometer [phone] Random Glucose Lactic Acid 2.6 H* Calcium Phosphorus Magnesium Total Bilirubin AST ALT Alkaline Phosphatase Ammonia 65.79 H Total Protein Albumin Urine Color Urine Appearance Urine pH Ur Specific [place] Urine Protein Urine Glucose (UA) Urine Ketones Urine Blood Urine Nitrite Urine Bilirubin Urine Urobilinogen Ur Leukocyte Esterase 02/17/18 02/17/18 02/18/18 19:28 21:01 06:19 WBC RBC Hgb Hct MCV MCH MCHC RDW Plt Count MPV Neutrophils % Lymphocytes % Monocytes % Eosinophils % Basophils % Sodium Potassium Chloride Carbon Dioxide Anion Gap BUN Creatinine Creat Clearance w eGFR POC Glucometer [phone] Random Glucose Lactic Acid 3.9 H* Calcium Phosphorus Magnesium Total Bilirubin AST ALT Alkaline Phosphatase Ammonia Total Protein Albumin Urine Color Straw Urine Appearance Clear Urine pH 6.0 Ur Specific [place] 1.008 Urine Protein Negative Urine Glucose (UA) Negative Urine Ketones Negative Urine Blood Negative Urine Nitrite Negative Urine Bilirubin Negative Urine Urobilinogen Negative Ur Leukocyte Esterase Negative 02/18/18 02/18/18 02/18/18 07:15 07:15 08:28 WBC 13.8 H RBC 3.65 L D Hgb 10.0 L D Hct 31.5 L D MCV 86.3 MCH 27.3 MCHC 31.6 L RDW 14.3 Plt Count 322 D MPV 9.5 Neutrophils % 79.5 Lymphocytes % 12.3 Monocytes % 6.5 D Eosinophils % 1.5 D Basophils % 0.2 Sodium 147 H Potassium 4.2 Chloride 113 H Carbon Dioxide 32 D Anion Gap 2 L BUN 6 L D Creatinine 0.5 L D Creat Clearance w eGFR > 60 POC Glucometer Random Glucose 96 Lactic Acid 2.4 H* Calcium 8.8 Phosphorus 2.8 Magnesium 2.2 Total Bilirubin 0.3 D AST 59 H D ALT 50 D Alkaline Phosphatase 35 L D Ammonia Total Protein 5.8 L D Albumin 2.9 L D Urine Color Urine Appearance Urine pH Ur Specific [place] Urine Protein Urine Glucose (UA) Urine Ketones Urine Blood Urine Nitrite Urine Bilirubin Urine Urobilinogen Ur Leukocyte Esterase 02/18/18 12:07 WBC RBC Hgb Hct MCV MCH MCHC RDW Plt Count MPV Neutrophils % Lymphocytes % Monocytes % Eosinophils % Basophils % Sodium Potassium Chloride Carbon Dioxide Anion Gap BUN Creatinine Creat Clearance w eGFR POC Glucometer 106 Random Glucose Lactic Acid Calcium Phosphorus Magnesium Total Bilirubin AST ALT Alkaline Phosphatase Ammonia Total Protein Albumin Urine Color Urine Appearance Urine pH Ur Specific [place] Urine Protein Urine Glucose (UA) Urine Ketones Urine Blood Urine Nitrite Urine Bilirubin Urine Urobilinogen Ur Leukocyte Esterase Active Medications Generic Name Dose Route Start Last Admin Trade Name Freq PRN Reason Stop Dose Admin Albuterol/Ipratropium 1 amp 02/17/18 20:00 02/18/18 07:59 Duoneb - NEB 1 amp RQID DONNIE Administration Albuterol/Ipratropium 1 amp 02/17/18 16:23 Duoneb - NEB Q4H PRN SHORTNESS OF BREATH Aspirin 81 mg 02/18/18 10:00 02/18/18 10:43 Ecotrin - PO 81 mg DAILY DONNIE Administration Heparin Sodium (Porcine) 5,000 unit 02/17/18 22:00 02/18/18 06:01 Heparin - SQ 5,000 unit TID DONNIE Administration Sodium Chloride 1,000 mls @ 100 mls/hr 02/18/18 09:05 02/18/18 10:43 Normal Saline - IV 100 mls/hr ASDIR DONNIE Administration Insulin Aspart 1 vial 02/17/18 16:30 02/18/18 12:22 Novolog Vial Sliding Scale - SQ Not Given ACHS [facility] Protocol Lactulose 20 gm 02/17/18 17:11 Cephulac (Oral Use) PO Q8H PRN CONSTIPATION Lamotrigine 25 mg 02/17/18 22:00 02/18/18 10:43 Lamictal - PO 25 mg BID DONNIE Administration [place] Carbonate 300 mg 02/17/18 22:00 02/18/18 13:34 Eskalith - PO 300 mg BID DONNIE Administration Magnesium Hydroxide 30 ml 02/17/18 16:34 Milk Of Magnesia - PO Q8H PRN INDIGESTION Melatonin 3 mg 02/17/18 22:00 02/17/18 22:11 Melatonin PO 3 mg HS DONNIE Administration ASSESSMENT/PLAN: 53 year old M with multiple medical comorbidities presented with abdominal distention and sob #Severe sepsis 2/2 to bilateral pneumonia -ns @ 100 cc/hr -repeat lactic acid -per ID, no abx needed -ID consult -monitor respiratory status #Acute hypercapnic hypoxemic respiratory failure -Duonebs prn/donnie qid -o2 as needed to maintain sats -pulmonary consult #Constipation with elevated ammonia level -milk of mag -lactulose 20 mg tid prn -disimpacted in the ER #CAD -continue aspirin #DM -bgm -iss -avoid hypoglycemic events -hold oral hypoglycemics #Bipolar d/o -continue lithium and zyprexa -will check lithium level #FEN/GI -IVF @ 100 cc/hr -wnl -diabetic diet #PPx -Heparin sq q8h Mother is health care proxy and patient has no decision making capacity Home meds were confirmed with Clarence Downey paperwork Pt's mother Ms. Banegas [phone] Visit type - Emergency Visit Emergency Visit: Yes ED Registration Date: 02/17/18 Care time: The patient presented to the Emergency Department on the above date and was hospitalized for further evaluation of their emergent condition. - New Patient This patient is new to me today: No - Critical Care Critical Care patient: No <Gregg Han - Last Filed: 02/18/18 20:42> Physical Exam: Patient continues to wheeze. agree with the above plan. Vital Signs Temperature 98.2 F 02/18/18 20:27 Pulse Rate 67 02/18/18 20:27 Respiratory Rate 19 02/18/18 20:27 Blood Pressure 95/63 02/18/18 20:27 O2 Sat by Pulse Oximetry (%) 98 02/18/18 08:56 CBCD WBC 13.8 K/mm3 (4.0-10.0) H 02/18/18 07:15 RBC 3.65 M/mm3 (4.00-5.60) L D 02/18/18 07:15 Hgb 10.0 GM/dL (11.7-16.9) L D 02/18/18 07:15 Hct 31.5 % (35.4-49) L D 02/18/18 07:15 MCV 86.3 fl (80-96) 02/18/18 07:15 MCHC 31.6 g/dl (32.0-35.9) L 02/18/18 07:15 RDW 14.3 % (11.9-15.9) 02/18/18 07:15 Plt Count 322 K/MM3 (134-434) D 02/18/18 07:15 MPV 9.5 fl (7.5-11.1) 02/18/18 07:15 CMP Sodium 147 mmol/L (136-145) H 02/18/18 07:15 Potassium 4.2 mmol/L (3.5-5.1) 02/18/18 07:15 Chloride 113 mmol/L (98-107) H 02/18/18 07:15 Carbon Dioxide 32 mmol/L (21-32) D 02/18/18 07:15 Anion Gap 2 (8-16) L 02/18/18 07:15 BUN 6 mg/dL (7-18) L D 02/18/18 07:15 Creatinine 0.5 mg/dL (0.7-1.3) L D 02/18/18 07:15 Creat Clearance w eGFR > 60 (>60) 02/18/18 07:15 Random Glucose 96 mg/dL (74-106) 02/18/18 07:15 Calcium 8.8 mg/dL (8.5-10.1) 02/18/18 07:15 Total Bilirubin 0.3 mg/dL (0.2-1.0) D 02/18/18 07:15 AST 59 U/L (15-37) H D 02/18/18 07:15 ALT 50 U/L (12-78) D 02/18/18 07:15 Alkaline Phosphatase 35 U/L (45-117) L D 02/18/18 07:15 Total Protein 5.8 g/dl (6.4-8.2) L D 02/18/18 07:15 Albumin 2.9 g/dl (3.4-5.0) L D 02/18/18 07:15 CARDIAC ENZYMES Creatine Kinase 156 IU/L (39-308) 02/17/18 12:33 Troponin I < 0.02 ng/ml (0.00-0.05) 02/17/18 12:33 Current Medications Generic Name Dose Route Start Last Admin Trade Name Freq PRN Reason Stop Dose Admin Albuterol/Ipratropium 1 amp 02/17/18 20:00 02/18/18 16:45 Duoneb - NEB 1 amp RQID DONNIE Administration Albuterol/Ipratropium 1 amp 02/17/18 16:23 Duoneb - NEB Q4H PRN SHORTNESS OF BREATH Aspirin 81 mg 02/18/18 10:00 02/18/18 10:43 Ecotrin - PO 81 mg DAILY DONNIE Administration Heparin Sodium (Porcine) 5,000 unit 02/17/18 22:00 02/18/18 14:27 Heparin - SQ 5,000 unit TID DONNIE Administration Sodium Chloride 1,000 mls @ 100 mls/hr 02/18/18 09:05 02/18/18 20:30 Normal Saline - IV 100 mls/hr ASDIR DONNIE Administration Insulin Aspart 1 vial 02/17/18 16:30 02/18/18 17:03 Novolog Vial Sliding Scale - SQ Not Given ACHS DONNIE Protocol Lactulose 20 gm 02/17/18 17:11 Cephulac (Oral Use) PO Q8H PRN CONSTIPATION Lamotrigine 25 mg 02/17/18 22:00 02/18/18 10:43 Lamictal - PO 25 mg BID DONNIE Administration [place] Carbonate 300 mg 02/17/18 22:00 02/18/18 13:34 Eskalith - PO 300 mg BID DONNIE Administration Magnesium Hydroxide 30 ml 02/17/18 16:34 Milk Of Magnesia - PO Q8H PRN INDIGESTION Melatonin 3 mg 02/17/18 22:00 02/17/18 22:11 Melatonin PO 3 mg HS DONNIE Administration Home Medications Medication Instructions Recorded Albuterol 2.5/Ipratropium 0.5 1 neb NEB Q4H 02/17/18 [Duoneb -] Aspirin [ASA -] 81 mg PO DAILY 02/17/18 Cholecalciferol (Vitamin D3) 1,000 unit PO DAILY 02/17/18 [Vitamin D3] Fenofibrate Nanocrystallized 160 mg PO DAILY 02/17/18 [Triglide] [place] Carbonate [Eskalith -] 300 mg PO BID 02/17/18 Magnesium Hydroxide [Milk of 400 mg PO PRN 02/17/18 Magnesia] Melatonin/Pyridoxine HCl (B6) 1 each PO HS 02/17/18 [Melatonin 3 mg Tablet] Metformin HCl 500 mg PO BID 02/17/18 Olanzapine [Zyprexa] 20 mg PO DAILY 02/17/18
--- NOTE | 2018-02-18 16:01 | PN ---
Progress Note, Physician Chief Complaint: constipation History of Present Illness: 53-year-old male with past medical history of COPD, hypertension, diabetes, hyperlipidemia, coronary disease, schizoaffective disorder, bipolar disorder from shelter [facility] presents with abdominal distention and constipation and shortness of breath. I have spoken and discussed the case with nurse Arlene at [facility]. Now passing soft brown stool. - Current Medication List Current Medications: Active Medications Albuterol/Ipratropium (Duoneb -) 1 amp NEB RQID [facility] Last Admin: 02/18/18 07:59 Dose: 1 amp Albuterol/Ipratropium (Duoneb -) 1 amp NEB Q4H PRN PRN Reason: SHORTNESS OF BREATH Aspirin (Ecotrin -) 81 mg PO DAILY [facility] Last Admin: 02/18/18 10:43 Dose: 81 mg Heparin Sodium (Porcine) (Heparin -) 5,000 unit SQ TID [facility] Last Admin: 02/18/18 14:27 Dose: 5,000 unit Sodium Chloride (Normal Saline -) 1,000 mls @ 100 mls/hr IV ASDIR [facility] Last Admin: 02/18/18 10:43 Dose: 100 mls/hr Insulin Aspart (Novolog Vial Sliding Scale -) 1 vial SQ ACHS [facility] PRN Reason: Protocol Last Admin: 02/18/18 12:22 Dose: Not Given Lactulose (Cephulac (Oral Use)) 20 gm PO Q8H PRN PRN Reason: CONSTIPATION Lamotrigine (Lamictal -) 25 mg PO BID [facility] Last Admin: 02/18/18 10:43 Dose: 25 mg [place] Carbonate (Eskalith -) 300 mg PO BID [facility] Last Admin: 02/18/18 13:34 Dose: 300 mg Magnesium Hydroxide (Milk Of Magnesia -) 30 ml PO Q8H PRN PRN Reason: INDIGESTION Melatonin (Melatonin) 3 mg PO HS [facility] Last Admin: 02/17/18 22:11 Dose: 3 mg - Objective Vital Signs: Vital Signs Temperature 98.3 F 02/18/18 14:09 Pulse Rate 68 02/18/18 14:09 Respiratory Rate 18 02/18/18 14:09 Blood Pressure 107/64 02/18/18 14:09 O2 Sat by Pulse Oximetry (%) 98 02/18/18 08:56 Vital Signs Period Temp Pulse Resp BP Sys/Pete Pulse Ox Last 24 Hr 98 F-98.3 F 67-93 16-18 96-113/47-80 92-100 Constitutional: Yes: Well Nourished, No Distress, Calm Eyes: Yes: Conjunctiva Clear, EOM Intact HENT: Yes: Atraumatic, Normocephalic Neck: Yes: Supple, Trachea Midline Cardiovascular: Yes: Regular Rate and Rhythm, S1, S2 Respiratory: Yes: Regular, CTA Bilaterally Gastrointestinal: Yes: Normal Bowel Sounds, Soft, Distention (less than before disimpaction). No: Tenderness, Tenderness, Epigastrium, Tenderness, Rebound ...Rectal Exam: Yes: Sphincter Tone Normal, Other (pasty soft brown stool). No : Mass Genitourinary: No: CVA Tenderness - Left, CVA Tenderness - Right Extremities: No: Cool, Cyanosis Edema: No Peripheral Pulses WNL: Yes Peripheral Pulses: Left Doralis Pedis: 2+, Right Dorsalis Pedis: 2+ Neurological: Yes: Alert, Oriented Psychiatric: Yes: Alert, Oriented Labs: CBC, BMP 02/18/18 07:15 02/18/18 07:15 INR, PTT INR 1.17 (0.82-1.09) H 02/17/18 12:33 Problem List - Problems (1) Fecal impaction in rectum Assessment/Plan: 53yo male MMP presented with massive abdominal distension secondary to fecal impaction in the rectum. manually disimpacted at the bedside NPO and IVF hydration Correct electrolytes repeated disimpaction Bowel Regimen per GI enemas and consider golytely PO Thank you for the opportunity to participate in the care of this patient. Code(s): K56.41 - FECAL IMPACTION (2) Schizo-affective schizophrenia Code(s): F25.0 - SCHIZOAFFECTIVE DISORDER, BIPOLAR TYPE (3) COPD exacerbation Code(s): J44.1 - CHRONIC OBSTRUCTIVE PULMONARY DISEASE W (ACUTE) EXACERBATION (4) Constipation Code(s): K59.00 - CONSTIPATION, UNSPECIFIED Qualifiers: Constipation type: unspecified constipation type Qualified Code(s): K59.00 - Constipation, unspecified
[2018-02-18] MEDS: MELATONIN 1 MG TABLET PO SCH (22:56)
[2018-02-19] MEDS: HEPARIN NA (PORCINE) 5,000 UNITS/ML 1ML VIAL SQ SCH ×3 (05:47→21:25)
[2018-02-19] MEDS: SODIUM CHLORIDE 1,000 ML IV SCH ×2 (05:48→19:03)
[2018-02-19] MEDS: INSULIN SLIDING SCALE (NOVOLOG) 1 VIAL SQ SCH ×4 (06:05→21:27)
[2018-02-19 07:35] LABS: BASO % 0.6 % (0-2.0); EOS % 2.8 % (0-4.5); HEMATOCRIT 31.1 % (35.4-49); HEMOGLOBIN 9.7 GM/dL (11.7-16.9); MCH 27.5 pg (25.7-33.7); MCHC 31.2 g/dl (32.0-35.9); MEAN CELL VOLUME 88.1 fl (80-96); MEAN PLT VOLUME 10.7 fl (7.5-11.1); MONO % 8.7 % (3.8-10.2); NEUT % 70.9 % (42.8-82.8); PLATELET COUNT 292 K/MM3 (134-434); RBC 3.53 M/mm3 (4.00-5.60); RDW 14.6 % (11.9-15.9); WHITE BLOOD COUNT 10.6 K/mm3 (4.0-10.0)
[2018-02-19] MEDS: ALBUTEROL SO4 2.5/IPRATROPIUM 0.5 INH SOL 3 ML VIAL.NEB. NEB SCH ×4 (07:38→20:05)
[2018-02-19 07:48] LABS: ALBUMIN 2.8 g/dl (3.4-5.0); ANION GAP -2 (8-16); BLOOD UREA NITROGEN 4 mg/dL (7-18); CALCIUM 8.7 mg/dL (8.5-10.1); CHLORIDE 117 mmol/L (98-107); CO2 35 mmol/L (21-32); GLUCOSE,RANDOM 98 mg/dL (74-106); POTASSIUM 4.4 mmol/L (3.5-5.1); SGOT/AST 38 U/L (15-37); SGPT/ALT 44 U/L (12-78); SODIUM 150 mmol/L (136-145)
[2018-02-19 07:51] LABS: ALK PHOS 36 U/L (45-117); BILIRUBIN,TOTAL 0.2 mg/dL (0.2-1.0); CREATININE 0.6 mg/dL (0.7-1.3); TOT PROT 5.9 g/dl (6.4-8.2)
--- NOTE | 2018-02-19 08:51 | PN ---
Progress Note (short form) - Note Progress Note: Vital Signs Temperature 98.2 F 02/19/18 06:00 Pulse Rate 52 L 02/19/18 06:00 Respiratory Rate 18 02/19/18 06:00 Blood Pressure 101/68 02/19/18 06:00 O2 Sat by Pulse Oximetry (%) 98 02/18/18 08:56 GENERAL: Awake, alert, appears uncomfortable, Difficult to understand HEAD: Normal with no signs of trauma. EYES: Extraocular movements intact, sclera anicteric, conjunctiva clear. No lid lag. EARS, NOSE, THROAT: Oropharynx clear without exudates. Dry mucous membranes. NECK: Normal range of motion, supple without lymphadenopathy, JVD, or masses. LUNGS: Breath sounds decreased at bases, mild wheezing bilaterally. No accessory muscle use HEART: Regular rhythm, tachycardic, normal S1 and S2 without murmur, rub or gallop. ABDOMEN: Soft, nontender, not distended, normoactive bowel sounds, no guarding, no rebound, no masses. No hepatomegaly or splenomegaly. MUSCULOSKELETAL: No CVA tenderness. UPPER EXTREMITIES: 2+ pulses, warm, well-perfused. No cyanosis. No clubbing. No peripheral edema. LOWER EXTREMITIES: 2+ pulses, warm, well-perfused. No calf tenderness. No peripheral edema. CBCD WBC 10.6 K/mm3 (4.0-10.0) H 02/19/18 06:30 RBC 3.53 M/mm3 (4.00-5.60) L 02/19/18 06:30 Hgb 9.7 GM/dL (11.7-16.9) L 02/19/18 06:30 Hct 31.1 % (35.4-49) L 02/19/18 06:30 MCV 88.1 fl (80-96) 02/19/18 06:30 MCHC 31.2 g/dl (32.0-35.9) L 02/19/18 06:30 RDW 14.6 % (11.9-15.9) 02/19/18 06:30 Plt Count 292 K/MM3 (134-434) 02/19/18 06:30 MPV 10.7 fl (7.5-11.1) D 02/19/18 06:30 CMP Sodium 147 mmol/L (136-145) H 02/18/18 07:15 Potassium 4.2 mmol/L (3.5-5.1) 02/18/18 07:15 Chloride 113 mmol/L (98-107) H 02/18/18 07:15 Carbon Dioxide 32 mmol/L (21-32) D 02/18/18 07:15 Anion Gap 2 (8-16) L 02/18/18 07:15 BUN 6 mg/dL (7-18) L D 02/18/18 07:15 Creatinine 0.5 mg/dL (0.7-1.3) L D 02/18/18 07:15 Creat Clearance w eGFR > 60 (>60) 02/18/18 07:15 Random Glucose 96 mg/dL (74-106) 02/18/18 07:15 Calcium 8.8 mg/dL (8.5-10.1) 02/18/18 07:15 Total Bilirubin 0.3 mg/dL (0.2-1.0) D 02/18/18 07:15 AST 59 U/L (15-37) H D 02/18/18 07:15 ALT 50 U/L (12-78) D 02/18/18 07:15 Alkaline Phosphatase 35 U/L (45-117) L D 02/18/18 07:15 Total Protein 5.8 g/dl (6.4-8.2) L D 02/18/18 07:15 Albumin 2.9 g/dl (3.4-5.0) L D 02/18/18 07:15 CARDIAC ENZYMES Creatine Kinase 156 IU/L (39-308) 02/17/18 12:33 Troponin I < 0.02 ng/ml (0.00-0.05) 02/17/18 12:33 Current Medications Generic Name Dose Route Start Last Admin Trade Name Freq PRN Reason Stop Dose Admin Albuterol/Ipratropium 1 amp 02/17/18 20:00 02/19/18 07:38 Duoneb - NEB 1 amp RQID YUNIEL Administration Albuterol/Ipratropium 1 amp 02/17/18 16:23 Duoneb - NEB Q4H PRN SHORTNESS OF BREATH Aspirin 81 mg 02/18/18 10:00 02/18/18 10:43 Ecotrin - PO 81 mg DAILY YUNIEL Administration Heparin Sodium (Porcine) 5,000 unit 02/17/18 22:00 02/19/18 05:47 Heparin - SQ 5,000 unit TID YUNIEL Administration Sodium Chloride 1,000 mls @ 100 mls/hr 02/18/18 09:05 02/19/18 05:48 Normal Saline - IV 100 mls/hr ASDIR YUNIEL Administration Insulin Aspart 1 vial 02/17/18 16:30 02/19/18 06:05 Novolog Vial Sliding Scale - SQ Not Given ACHS [facility] Protocol Lactulose 20 gm 02/17/18 17:11 Cephulac (Oral Use) PO Q8H PRN CONSTIPATION Lamotrigine 25 mg 02/17/18 22:00 02/18/18 21:41 Lamictal - PO 25 mg BID YUNIEL Administration [place] Carbonate 300 mg 02/17/18 22:00 02/18/18 21:42 Eskalith - PO 300 mg BID YUNIEL Administration Magnesium Hydroxide 30 ml 02/17/18 16:34 Milk Of Magnesia - PO Q8H PRN INDIGESTION Melatonin 3 mg 02/17/18 22:00 02/18/18 22:56 Melatonin PO 3 mg HS YUNIEL Administration Home Medications Medication Instructions Recorded Albuterol 2.5/Ipratropium 0.5 1 neb NEB Q4H 02/17/18 [Duoneb -] Aspirin [ASA -] 81 mg PO DAILY 02/17/18 Cholecalciferol (Vitamin D3) 1,000 unit PO DAILY 02/17/18 [Vitamin D3] Fenofibrate Nanocrystallized 160 mg PO DAILY 02/17/18 [Triglide] [place] Carbonate [Eskalith -] 300 mg PO BID 02/17/18 Magnesium Hydroxide [Milk of 400 mg PO PRN 02/17/18 Magnesia] Melatonin/Pyridoxine HCl (B6) 1 each PO HS 02/17/18 [Melatonin 3 mg Tablet] Metformin HCl 500 mg PO BID 02/17/18 Olanzapine [Zyprexa] 20 mg PO DAILY 02/17/18 A/P: 53 year old M with multiple medical comorbidities presented with abdominal distention and sob #Acute hypercapnic hypoxemic respiratory failure #Severe sepsis due to bilateral pneumonia # BL Pneumonia # Elevated ammonia level increased the dose of lactulose # Hx of constipation with elevated ammonia level was disimpacted in the ER #CAD continue aspirin #DM BGMs #Bipolar d/o continue lithium and zyprexa #PPx: Heparin sq q8h
--- NOTE | 2018-02-19 09:08 | PN ---
Teaching Attending Note Name of Resident: Isaac Huber ATTENDING PHYSICIAN STATEMENT I saw and evaluated the patient. I reviewed the resident's note and discussed the case with the resident. I agree with the resident's findings and plan as documented. SUBJECTIVE: Patient feels better today. Vital Signs Temperature 98.2 F 02/19/18 06:00 Pulse Rate 52 L 02/19/18 06:00 Respiratory Rate 18 02/19/18 06:00 Blood Pressure 101/68 02/19/18 06:00 O2 Sat by Pulse Oximetry (%) 98 02/18/18 08:56 GENERAL: Awake, alert, appears uncomfortable, Difficult to understand HEAD: Normal with no signs of trauma. EYES: Extraocular movements intact, sclera anicteric, conjunctiva clear. No lid lag. EARS, NOSE, THROAT: Oropharynx clear without exudates. Dry mucous membranes. NECK: Normal range of motion, supple without lymphadenopathy, JVD, or masses. LUNGS:GAE BL, Breath sounds decreased at bases, mild wheezing bilaterally. No accessory muscle use HEART: Regular rhythm, normal S1 and S2 without murmur, rub or gallop. ABDOMEN: Soft, nontender, not distended, normoactive bowel sounds, no guarding, no rebound, no masses. No hepatomegaly or splenomegaly. MUSCULOSKELETAL: No CVA tenderness. EXTREMITIES: 2+ pulses, warm, well-perfused. No cyanosis. No clubbing. No peripheral edema. CBCD WBC 10.6 K/mm3 (4.0-10.0) H 02/19/18 06:30 RBC 3.53 M/mm3 (4.00-5.60) L 02/19/18 06:30 Hgb 9.7 GM/dL (11.7-16.9) L 02/19/18 06:30 Hct 31.1 % (35.4-49) L 02/19/18 06:30 MCV 88.1 fl (80-96) 02/19/18 06:30 MCHC 31.2 g/dl (32.0-35.9) L 02/19/18 06:30 RDW 14.6 % (11.9-15.9) 02/19/18 06:30 Plt Count 292 K/MM3 (134-434) 02/19/18 06:30 MPV 10.7 fl (7.5-11.1) D 02/19/18 06:30 CMP Sodium 147 mmol/L (136-145) H 02/18/18 07:15 Potassium 4.2 mmol/L (3.5-5.1) 02/18/18 07:15 Chloride 113 mmol/L (98-107) H 02/18/18 07:15 Carbon Dioxide 32 mmol/L (21-32) D 02/18/18 07:15 Anion Gap 2 (8-16) L 02/18/18 07:15 BUN 6 mg/dL (7-18) L D 02/18/18 07:15 Creatinine 0.5 mg/dL (0.7-1.3) L D 02/18/18 07:15 Creat Clearance w eGFR > 60 (>60) 02/18/18 07:15 Random Glucose 96 mg/dL (74-106) 02/18/18 07:15 Calcium 8.8 mg/dL (8.5-10.1) 02/18/18 07:15 Total Bilirubin 0.3 mg/dL (0.2-1.0) D 02/18/18 07:15 AST 59 U/L (15-37) H D 02/18/18 07:15 ALT 50 U/L (12-78) D 02/18/18 07:15 Alkaline Phosphatase 35 U/L (45-117) L D 02/18/18 07:15 Total Protein 5.8 g/dl (6.4-8.2) L D 02/18/18 07:15 Albumin 2.9 g/dl (3.4-5.0) L D 02/18/18 07:15 CARDIAC ENZYMES Creatine Kinase 156 IU/L (39-308) 02/17/18 12:33 Troponin I < 0.02 ng/ml (0.00-0.05) 02/17/18 12:33 Home Medications Medication Instructions Recorded Albuterol 2.5/Ipratropium 0.5 1 neb NEB Q4H 02/17/18 [Duoneb -] Aspirin [ASA -] 81 mg PO DAILY 02/17/18 Cholecalciferol (Vitamin D3) 1,000 unit PO DAILY 02/17/18 [Vitamin D3] Fenofibrate Nanocrystallized 160 mg PO DAILY 02/17/18 [Triglide] [place] Carbonate [Eskalith -] 300 mg PO BID 02/17/18 Magnesium Hydroxide [Milk of 400 mg PO PRN 02/17/18 Magnesia] Melatonin/Pyridoxine HCl (B6) 1 each PO HS 02/17/18 [Melatonin 3 mg Tablet] Metformin HCl 500 mg PO BID 02/17/18 Olanzapine [Zyprexa] 20 mg PO DAILY 02/17/18 Current Medications Generic Name Dose Route Start Last Admin Trade Name Freq PRN Reason Stop Dose Admin Albuterol/Ipratropium 1 amp 02/17/18 20:00 02/19/18 07:38 Duoneb - NEB 1 amp RQID YUNIEL Administration Albuterol/Ipratropium 1 amp 02/17/18 16:23 Duoneb - NEB Q4H PRN SHORTNESS OF BREATH Aspirin 81 mg 02/18/18 10:00 02/18/18 10:43 Ecotrin - PO 81 mg DAILY YUNIEL Administration Heparin Sodium (Porcine) 5,000 unit 02/17/18 22:00 02/19/18 05:47 Heparin - SQ 5,000 unit TID YUNIEL Administration Sodium Chloride 1,000 mls @ 100 mls/hr 02/18/18 09:05 02/19/18 05:48 Normal Saline - IV 100 mls/hr ASDIR YUNIEL Administration Insulin Aspart 1 vial 02/17/18 16:30 02/19/18 06:05 Novolog Vial Sliding Scale - SQ Not Given ACHS [facility] Protocol Lactulose 20 gm 02/17/18 17:11 Cephulac (Oral Use) PO Q8H PRN CONSTIPATION Lamotrigine 25 mg 02/17/18 22:00 02/18/18 21:41 Lamictal - PO 25 mg BID YUNIEL Administration [place] Carbonate 300 mg 02/17/18 22:00 02/18/18 21:42 Eskalith - PO 300 mg BID YUNIEL Administration Magnesium Hydroxide 30 ml 02/17/18 16:34 Milk Of Magnesia - PO Q8H PRN INDIGESTION Melatonin 3 mg 02/17/18 22:00 02/18/18 22:56 Melatonin PO 3 mg HS YUNIEL Administration A/P: 53 year old M with multiple medical comorbidities presented with abdominal distention and sob #Acute hypercapnic hypoxemic respiratory failure on Duoneb and albuterol prn and standing order. #s/p severe sepsis due to bilateral pneumonia, was given Zosyn and vancomycin and was recommended to stop antibiotic since patient was manually disimpacted by the surgeon # Elevated ammonia level increased the dose of lactulose # Hx of constipation with elevated ammonia level was disimpacted in the ER by the surgeon #CAD continue aspirin #DM BGMs #Bipolar d/o continue lithium and zyprexa #PPx: Heparin sq q8h Possible discharge in am. if stable
[2018-02-19] MEDS ORDERED: PT OWN MED DRAWER 7, Y5N ONE ×2 (09:34→21:19)
[2018-02-19] MEDS: LITHIUM CARBONATE 300 MG CAPSULE (FP) PO SCH ×2 (09:38→21:25)
[2018-02-19] MEDS: ASPIRIN COATED 81 MG TABLET.EC PO SCH (09:38)
[2018-02-19] MEDS: lamoTRIgine 25 MG TABLET PO SCH ×2 (09:38→21:26)
--- NOTE | 2018-02-19 10:03 | PN ---
Physical Exam: SUBJECTIVE: Patient seen and examined No acute events overnight. Denies any complaints this morning. OBJECTIVE: Vital Signs Period Temp Pulse Resp BP Sys/Pete Pulse Ox Last 24 Hr 97.5 F-98.3 F 52-68 18-20 95-109/58-68 GENERAL: Awake, alert, appears uncomfortable, Difficult to understand HEAD: Normal with no signs of trauma. EYES: Extraocular movements intact, sclera anicteric, conjunctiva clear. No lid lag. EARS, NOSE, THROAT: Oropharynx clear without exudates. Dry mucous membranes. NECK: Normal range of motion, supple without lymphadenopathy, JVD, or masses. LUNGS: Breath sounds decreased at bases, mild wheezing bilaterally. No accessory muscle use HEART: Regular rhythm, tachycardic, normal S1 and S2 without murmur, rub or gallop. ABDOMEN: Soft, nontender, not distended, normoactive bowel sounds, no guarding, no rebound, no masses. No hepatomegaly or splenomegaly. MUSCULOSKELETAL: No CVA tenderness. UPPER EXTREMITIES: 2+ pulses, warm, well-perfused. No cyanosis. No clubbing. No peripheral edema. LOWER EXTREMITIES: 2+ pulses, warm, well-perfused. No calf tenderness. No peripheral edema. Laboratory Results - last 24 hr 02/18/18 02/18/18 02/18/18 07:15 08:28 12:07 WBC RBC Hgb Hct MCV MCH MCHC RDW Plt Count MPV Neutrophils % Lymphocytes % Monocytes % Eosinophils % Basophils % Sodium Potassium Chloride Carbon Dioxide Anion Gap BUN Creatinine Creat Clearance w eGFR POC Glucometer 106 Random Glucose Lactic Acid 2.4 H* Calcium Total Bilirubin AST ALT Alkaline Phosphatase Total Protein Albumin [place] 0.8 02/18/18 02/18/18 02/19/18 17:03 21:40 05:40 WBC RBC Hgb Hct MCV MCH MCHC RDW Plt Count MPV Neutrophils % Lymphocytes % Monocytes % Eosinophils % Basophils % Sodium Potassium Chloride Carbon Dioxide Anion Gap BUN Creatinine Creat Clearance w eGFR POC Glucometer 102 128 103 Random Glucose Lactic Acid Calcium Total Bilirubin AST ALT Alkaline Phosphatase Total Protein Albumin [place] 02/19/18 02/19/18 02/19/18 06:30 06:30 06:30 WBC 10.6 H RBC 3.53 L Hgb 9.7 L Hct 31.1 L MCV 88.1 MCH 27.5 MCHC 31.2 L RDW 14.6 Plt Count 292 MPV 10.7 D Neutrophils % 70.9 Lymphocytes % 17.0 D Monocytes % 8.7 Eosinophils % 2.8 D Basophils % 0.6 Sodium 150 H Potassium 4.4 Chloride 117 H Carbon Dioxide 35 H Anion Gap -2 L BUN 4 L D Creatinine 0.6 L Creat Clearance w eGFR > 60 POC Glucometer Random Glucose 98 Lactic Acid 1.1 Calcium 8.7 Total Bilirubin 0.2 D AST 38 H D ALT 44 Alkaline Phosphatase 36 L Total Protein 5.9 L Albumin 2.8 L [place] Active Medications Generic Name Dose Route Start Last Admin Trade Name Freq PRN Reason Stop Dose Admin Albuterol/Ipratropium 1 amp 02/17/18 20:00 02/19/18 07:38 Duoneb - NEB 1 amp RQID DONNIE Administration Albuterol/Ipratropium 1 amp 02/17/18 16:23 Duoneb - NEB Q4H PRN SHORTNESS OF BREATH Aspirin 81 mg 02/18/18 10:00 02/19/18 09:38 Ecotrin - PO 81 mg DAILY DONNIE Administration Heparin Sodium (Porcine) 5,000 unit 02/17/18 22:00 02/19/18 05:47 Heparin - SQ 5,000 unit TID DONNIE Administration Insulin Aspart 1 vial 02/17/18 16:30 02/19/18 06:05 Novolog Vial Sliding Scale - SQ Not Given ACHS [facility] Protocol Lactulose 20 gm 02/17/18 17:11 Cephulac (Oral Use) PO Q8H PRN CONSTIPATION Lamotrigine 25 mg 02/17/18 22:00 02/19/18 09:38 Lamictal - PO 25 mg BID DONNIE Administration [place] Carbonate 300 mg 02/17/18 22:00 02/19/18 09:38 Eskalith - PO 300 mg BID DONNIE Administration Magnesium Hydroxide 30 ml 02/17/18 16:34 Milk Of Magnesia - PO Q8H PRN INDIGESTION Melatonin 3 mg 02/17/18 22:00 02/18/18 22:56 Melatonin PO 3 mg HS DONNIE Administration ASSESSMENT/PLAN: 53 year old M with multiple medical comorbidities presented with abdominal distention and sob #Severe sepsis 2/2 to bilateral pneumonia -Repeat LA normal -per ID, no abx needed -ID consult -monitor respiratory status #Acute hypercapnic hypoxemic respiratory failure -Duonebs prn/donnie qid -o2 as needed to maintain sats -pulmonary consult #Constipation with elevated ammonia level -milk of mag -lactulose 20 mg tid prn -disimpacted in the ER #CAD -continue aspirin #DM -bgm -iss -avoid hypoglycemic events -hold oral hypoglycemics #Bipolar d/o -continue lithium and zyprexa #FEN/GI -No IVF -wnl -diabetic diet #PPx -Heparin sq q8h Mother is health care proxy and patient has no decision making capacity Home meds were confirmed with Clarence Downey paperwork Pt's mother Ms. Banegas [phone] Visit type - Emergency Visit Emergency Visit: Yes ED Registration Date: 02/17/18 Care time: The patient presented to the Emergency Department on the above date and was hospitalized for further evaluation of their emergent condition. - New Patient This patient is new to me today: No - Critical Care Critical Care patient: No
--- NOTE | 2018-02-19 11:03 | PN ---
Progress Note (short form) - Note Progress Note: PULMONARY Passing bowel movements. Breathing better. Last Vital Signs Temp Pulse Resp BP Pulse Ox 97.5 F L 58 L 18 98/65 98 02/19/18 09:50 02/19/18 09:50 02/19/18 09:50 02/19/18 09:50 02/18/18 08:56 Intake & Output 02/16/18 02/17/18 02/18/18 02/19/18 23:59 23:59 23:59 23:59 Intake Total 1400 1200 Output Total 450 Balance 950 1200 Weight 92.533 kg Gen: NAD at rest Heart: RRR Lung: decreased breath sounds at the bases Abd: soft, nontender Ext: no edema CBC, BMP 02/19/18 06:30 02/19/18 06:30 Active Medications Albuterol/Ipratropium (Duoneb -) 1 amp NEB RQID [facility] Last Admin: 02/19/18 07:38 Dose: 1 amp Albuterol/Ipratropium (Duoneb -) 1 amp NEB Q4H PRN PRN Reason: SHORTNESS OF BREATH Aspirin (Ecotrin -) 81 mg PO DAILY [facility] Last Admin: 02/19/18 09:38 Dose: 81 mg Heparin Sodium (Porcine) (Heparin -) 5,000 unit SQ TID [facility] Last Admin: 02/19/18 05:47 Dose: 5,000 unit Insulin Aspart (Novolog Vial Sliding Scale -) 1 vial SQ ACHS [facility] PRN Reason: Protocol Last Admin: 02/19/18 06:05 Dose: Not Given Lactulose (Cephulac (Oral Use)) 20 gm PO Q8H PRN PRN Reason: CONSTIPATION Lamotrigine (Lamictal -) 25 mg PO BID [facility] Last Admin: 02/19/18 09:38 Dose: 25 mg [place] Carbonate (Eskalith -) 300 mg PO BID [facility] Last Admin: 02/19/18 09:38 Dose: 300 mg Magnesium Hydroxide (Milk Of Magnesia -) 30 ml PO Q8H PRN PRN Reason: INDIGESTION Melatonin (Melatonin) 3 mg PO HS [facility] Last Admin: 02/18/18 22:56 Dose: 3 mg A/P Acute Hypoxic and Hypercapneic Respiratory Failure improving COPD Fecal Impaction/Abdominal Distention Atelectasis Lactic Acidosis improved CAD HTN Hyperlipidemia Schizoaffective Disorder - bowel regimen - incentive spirometry - inhaled bronchodilators as needed - O2 as needed - DVT prophylaxis
--- NOTE | 2018-02-19 20:45 | PN ---
Progress Note, Physician Chief Complaint: constipation History of Present Illness: 53-year-old male with past medical history of COPD, hypertension, diabetes, hyperlipidemia, coronary disease, schizoaffective disorder, bipolar disorder from long term [facility] presents with abdominal distention and constipation and shortness of breath. I have spoken and discussed the case with nurse Arlene at [facility]. Now passing soft brown stool. - Current Medication List Current Medications: Active Medications Albuterol/Ipratropium (Duoneb -) 1 amp NEB RQID [facility] Last Admin: 02/19/18 15:38 Dose: 1 amp Albuterol/Ipratropium (Duoneb -) 1 amp NEB Q4H PRN PRN Reason: SHORTNESS OF BREATH Aspirin (Ecotrin -) 81 mg PO DAILY [facility] Last Admin: 02/19/18 09:38 Dose: 81 mg Heparin Sodium (Porcine) (Heparin -) 5,000 unit SQ TID [facility] Last Admin: 02/19/18 14:01 Dose: 5,000 unit Insulin Aspart (Novolog Vial Sliding Scale -) 1 vial SQ ACHS [facility] PRN Reason: Protocol Last Admin: 02/19/18 16:49 Dose: Not Given Lactulose (Cephulac (Oral Use)) 20 gm PO BID [facility] Lamotrigine (Lamictal -) 25 mg PO BID [facility] Last Admin: 02/19/18 09:38 Dose: 25 mg [place] Carbonate (Eskalith -) 300 mg PO BID [facility] Last Admin: 02/19/18 09:38 Dose: 300 mg Magnesium Hydroxide (Milk Of Magnesia -) 30 ml PO Q8H PRN PRN Reason: INDIGESTION Melatonin (Melatonin) 3 mg PO HS [facility] Last Admin: 02/18/18 22:56 Dose: 3 mg - Objective Vital Signs: Vital Signs Temperature 97.7 F 02/19/18 18:53 Pulse Rate 54 L 02/19/18 18:53 Respiratory Rate 22 02/19/18 18:53 Blood Pressure 106/62 02/19/18 18:53 O2 Sat by Pulse Oximetry (%) 98 02/18/18 08:56 Vital Signs Period Temp Pulse Resp BP Sys/Pete Pulse Ox Last 24 Hr 97.5 F-98.2 F 52-59 18-22 98-108/58-68 Constitutional: Yes: Well Nourished, No Distress, Calm Eyes: Yes: Conjunctiva Clear, EOM Intact HENT: Yes: Atraumatic, Normocephalic Neck: Yes: Supple, Trachea Midline Cardiovascular: Yes: Regular Rate and Rhythm, S1, S2 Respiratory: Yes: Regular, CTA Bilaterally Gastrointestinal: Yes: Normal Bowel Sounds, Soft, Distention ...Rectal Exam: Yes: Sphincter Tone Normal. No: Hemorrhoids/External Neurological: Yes: Alert, Oriented Psychiatric: Yes: Alert, Oriented Labs: CBC, BMP 02/19/18 06:30 02/19/18 06:30 INR, PTT INR 1.17 (0.82-1.09) H 02/17/18 12:33 Problem List - Problems (1) Fecal impaction in rectum Assessment/Plan: 53yo male MMP presented with massive abdominal distension secondary to fecal impaction in the rectum. manually disimpacted at the bedside. no passing soft BM NPO and IVF hydration Correct electrolytes Bowel Regimen per GI enemas and consider golytely PO recall as needed Code(s): K56.41 - FECAL IMPACTION (2) Schizo-affective schizophrenia Code(s): F25.0 - SCHIZOAFFECTIVE DISORDER, BIPOLAR TYPE (3) COPD exacerbation Code(s): J44.1 - CHRONIC OBSTRUCTIVE PULMONARY DISEASE W (ACUTE) EXACERBATION (4) Constipation Code(s): K59.00 - CONSTIPATION, UNSPECIFIED Qualifiers: Constipation type: unspecified constipation type Qualified Code(s): K59.00 - Constipation, unspecified
[2018-02-19] MEDS: LACTULOSE 20 GM/30 ML UDC (FOR ORAL USE ONLY) PO SCH (21:25)
[2018-02-19] MEDS: MELATONIN 1 MG TABLET PO SCH (21:26)
[2018-02-20] MEDS: INSULIN SLIDING SCALE (NOVOLOG) 1 VIAL SQ SCH ×3 (06:31→17:37)
[2018-02-20] MEDS: HEPARIN NA (PORCINE) 5,000 UNITS/ML 1ML VIAL SQ SCH ×2 (06:32→13:59)
[2018-02-20] MEDS: ALBUTEROL SO4 2.5/IPRATROPIUM 0.5 INH SOL 3 ML VIAL.NEB. NEB SCH ×3 (07:18→15:59)
[2018-02-20 07:24] LABS: BASO % 0.4 % (0-2.0); EOS % 3.5 % (0-4.5); HEMATOCRIT 30.7 % (35.4-49); HEMOGLOBIN 9.9 GM/dL (11.7-16.9); MCH 28.2 pg (25.7-33.7); MCHC 32.2 g/dl (32.0-35.9); MEAN CELL VOLUME 87.4 fl (80-96); MEAN PLT VOLUME 10.3 fl (7.5-11.1); MONO % 8.5 % (3.8-10.2); NEUT % 70.6 % (42.8-82.8); PLATELET COUNT 282 K/MM3 (134-434); RBC 3.52 M/mm3 (4.00-5.60); RDW 14.6 % (11.9-15.9); WHITE BLOOD COUNT 9.5 K/mm3 (4.0-10.0)
[2018-02-20 07:56] LABS: ANION GAP 6 (8-16); CALCIUM 9.4 mg/dL (8.5-10.1); CHLORIDE 112 mmol/L (98-107); CO2 30 mmol/L (21-32); GLUCOSE,RANDOM 89 mg/dL (74-106); POTASSIUM 4.2 mmol/L (3.5-5.1); SGOT/AST 27 U/L (15-37); SGPT/ALT 39 U/L (12-78); SODIUM 148 mmol/L (136-145)
[2018-02-20 08:02] LABS: ALK PHOS 37 U/L (45-117); BILIRUBIN,TOTAL 0.3 mg/dL (0.2-1.0); BLOOD UREA NITROGEN 3 mg/dL (7-18); CREATININE 0.6 mg/dL (0.7-1.3); TOT PROT 6.1 g/dl (6.4-8.2)
[2018-02-20] MEDS ORDERED: PT OWN MED DRAWER 7, Y5N ONE ×2 (10:08→13:57)
[2018-02-20] MEDS: lamoTRIgine 25 MG TABLET PO SCH (10:09)
[2018-02-20] MEDS: LACTULOSE 20 GM/30 ML UDC (FOR ORAL USE ONLY) PO SCH (10:09)
[2018-02-20] MEDS: ASPIRIN COATED 81 MG TABLET.EC PO SCH (10:09)
[2018-02-20] MEDS: LITHIUM CARBONATE 300 MG CAPSULE (FP) PO SCH (10:09)
--- NOTE | 2018-02-20 12:25 | PN ---
Progress Note, Physician History of Present Illness: pulmonary alert,no distress,eating - Current Medication List Current Medications: Active Medications Albuterol/Ipratropium (Duoneb -) 1 amp NEB RQID [facility] Last Admin: 02/20/18 12:17 Dose: 1 amp Albuterol/Ipratropium (Duoneb -) 1 amp NEB Q4H PRN PRN Reason: SHORTNESS OF BREATH Aspirin (Ecotrin -) 81 mg PO DAILY [facility] Last Admin: 02/20/18 10:09 Dose: 81 mg Heparin Sodium (Porcine) (Heparin -) 5,000 unit SQ TID [facility] Last Admin: 02/20/18 06:32 Dose: 5,000 unit Insulin Aspart (Novolog Vial Sliding Scale -) 1 vial SQ ACHS [facility] PRN Reason: Protocol Last Admin: 02/20/18 06:31 Dose: Not Given Lactulose (Cephulac (Oral Use)) 20 gm PO BID [facility] Last Admin: 02/20/18 10:09 Dose: 20 gm Lamotrigine (Lamictal -) 25 mg PO BID [facility] Last Admin: 02/20/18 10:09 Dose: 25 mg [place] Carbonate (Eskalith -) 300 mg PO BID [facility] Last Admin: 02/20/18 10:09 Dose: 300 mg Magnesium Hydroxide (Milk Of Magnesia -) 30 ml PO Q8H PRN PRN Reason: INDIGESTION Melatonin (Melatonin) 3 mg PO HS [facility] Last Admin: 02/19/18 21:26 Dose: 3 mg - Objective Vital Signs: Vital Signs Temperature 97.9 F 02/20/18 06:00 Pulse Rate 55 L 02/20/18 06:00 Respiratory Rate 20 02/20/18 06:00 Blood Pressure 116/71 02/20/18 06:00 O2 Sat by Pulse Oximetry (%) 99 02/19/18 21:00 Constitutional: Yes: Well Nourished, Calm Eyes: Yes: WNL HENT: Yes: WNL Neck: Yes: WNL Cardiovascular: Yes: Regular Rate and Rhythm, S1, S2 Respiratory: Yes: Diminished Gastrointestinal: Yes: Normal Bowel Sounds, Soft Extremities: Yes: WNL Edema: No Labs: CBC, BMP 02/20/18 07:00 02/20/18 07:00 INR, PTT INR 1.17 (0.82-1.09) H 02/17/18 12:33 Problem List - Problems (1) Acute respiratory failure with hypoxia and hypercarbia Code(s): J96.01 - ACUTE RESPIRATORY FAILURE WITH HYPOXIA; J96.02 - ACUTE RESPIRATORY FAILURE WITH HYPERCAPNIA (2) COPD exacerbation Code(s): J44.1 - CHRONIC OBSTRUCTIVE PULMONARY DISEASE W (ACUTE) EXACERBATION (3) Constipation Code(s): K59.00 - CONSTIPATION, UNSPECIFIED Qualifiers: Constipation type: unspecified constipation type Qualified Code(s): K59.00 - Constipation, unspecified (4) Fecal impaction in rectum Code(s): K56.41 - FECAL IMPACTION (5) Schizo-affective schizophrenia Code(s): F25.0 - SCHIZOAFFECTIVE DISORDER, BIPOLAR TYPE Assessment/Plan IMP ACUTE HYPOXEMIC/HYPERCAPNEIC RESPIRATORY FAILURE improving MARKED ABDOMINAL DISTENTION improved CHRONIC CONSTIPATION,FECAL IMPACTION COPD BIBASILAR CONSOLIDATIONS LIKELY SECONDARY TO ATELECTASIS ELEVATED LACTATE LEVEL normal ASHD SCHIZO-AFFECTIVE DISORDER HTN HLD PLAN INHALED BRONCHODILATORS O2 NIPPV IF PT DEVELOPES RESPIRATOR DISTRESS DISIMPACTION,ENEMAS IVF abg DR TREADWELL
--- NOTE | 2018-02-20 14:41 | DS ---
Physical Exam: Selected Entries 02/17/18 02/17/18 02/17/18 12:00 12:01 13:11 Temperature Pulse Rate 112 H Respiratory Rate Blood Pressure O2 Sat by Pulse 81 L 100 Oximetry (%) Oxygen Delivery Nasal Cannula Nasal Cannula Method Oxygen Flow 2 3 Rate 02/20/18 02/20/18 09:00 14:10 Temperature 97.6 F Pulse Rate 75 Respiratory 20 Rate Blood Pressure 100/61 O2 Sat by Pulse 95 Oximetry (%) Oxygen Delivery Room Air Method Oxygen Flow Rate Laboratory Tests 02/17/18 02/17/18 02/17/18 12:33 12:33 12:33 WBC 19.7 H D Hgb Hct Plt Count Puncture Site Left radial ABG pH 7.20 L* ABG pCO2 at Pt Temp 67.0 H* ABG pO2 at Pt Temp 62.2 L ABG HCO3 25.4 Sodium Potassium Chloride Carbon Dioxide Anion Gap BUN Creatinine Random Glucose Lactic Acid Troponin I < 0.02 Urine Color Urine Appearance Urine pH Ur Specific [place] Urine Protein Urine Glucose (UA) Urine Ketones Urine Blood Urine Nitrite Urine Bilirubin Urine Urobilinogen Ur Leukocyte Esterase [place] 02/17/18 02/17/18 02/18/18 19:28 21:01 07:15 WBC 13.8 H Hgb Hct Plt Count Puncture Site ABG pH ABG pCO2 at Pt Temp ABG pO2 at Pt Temp ABG HCO3 Sodium Potassium Chloride Carbon Dioxide Anion Gap BUN Creatinine Random Glucose Lactic Acid 3.9 H* Troponin I Urine Color Straw Urine Appearance Clear Urine pH 6.0 Ur Specific [place] 1.008 Urine Protein Negative Urine Glucose (UA) Negative Urine Ketones Negative Urine Blood Negative Urine Nitrite Negative Urine Bilirubin Negative Urine Urobilinogen Negative Ur Leukocyte Esterase Negative [place] 02/18/18 02/18/18 02/19/18 07:15 08:28 06:30 WBC 10.6 H Hgb Hct Plt Count Puncture Site ABG pH ABG pCO2 at Pt Temp ABG pO2 at Pt Temp ABG HCO3 Sodium Potassium Chloride Carbon Dioxide Anion Gap BUN Creatinine Random Glucose Lactic Acid 2.4 H* Troponin I Urine Color Urine Appearance Urine pH Ur Specific [place] Urine Protein Urine Glucose (UA) Urine Ketones Urine Blood Urine Nitrite Urine Bilirubin Urine Urobilinogen Ur Leukocyte Esterase [place] 0.8 02/19/18 02/20/18 02/20/18 06:30 07:00 07:00 WBC 9.5 Hgb 9.9 L Hct 30.7 L Plt Count 282 Puncture Site ABG pH ABG pCO2 at Pt Temp ABG pO2 at Pt Temp ABG HCO3 Sodium 148 H Potassium 4.2 Chloride 112 H Carbon Dioxide 30 Anion Gap 6 L BUN 3 L D Creatinine 0.6 L Random Glucose 89 Lactic Acid 1.1 Troponin I Urine Color Urine Appearance Urine pH Ur Specific [place] Urine Protein Urine Glucose (UA) Urine Ketones Urine Blood Urine Nitrite Urine Bilirubin Urine Urobilinogen Ur Leukocyte Esterase [place] [facility] 02/17/18 21:01 Urine - Urine - Catheterized Urine Culture - Preliminary Pseudomonas Aeruginosa Group D Strep Or Entero Coccus 02/17/18 12:33 Blood - Peripheral Venous Blood Culture - Preliminary NO GROWTH OBTAINED AFTER 72 HOURS, INCUBATION TO CONTINUE FOR 2 DAYS. 02/17/18 12:33 Blood - Peripheral Venous Blood Culture - Preliminary NO GROWTH OBTAINED AFTER 72 HOURS, INCUBATION TO CONTINUE FOR 2 DAYS. CXR- weak inspiration, elevated left hemidiaphragm, prominent mediastinum, and infiltrate/atelectasis at right base. CT abd/pelvis- Significantly dilated colon with a large amount of fecal residue that is more prominent in the distal sigmoid colon down to the rectosigmoid junction consistent with constipation and likely impaction. There is mild thickening of the rectosigmoid junction wall. Correlate clinically and further evaluation is needed. No free air or free fluid in the abdomen and pelvis. Moderate elevation of the left hemidiaphragm with bibasal consolidation, suggestive of pneumonia. HOSPITAL COURSE: Date of Admission:02/17/18 Date of Discharge: 02/20/18 53 year old M with pmh of copd, htn, hld, dm, chronic constipation, CAD, schizoaffective disorder, and bipolar presented with abdominal distention and found to have severe constipation on CT scan. Patient was disimpacted in the ER from [facility]. Patient then found to be in hypoxic hypercapnic respiratory failure 2/2 to ?abdominal distention. Patient with elevated ammonia, leukocytosis and lactic acidosis. Patient admitted for further evaluation. Patient's lab values improved and symptoms resolved once he had multiple BM's. Patient's breathing improved and once his BM's slowed down, patient started on an aggressive bowel regimen with lactulose, miralax, and enemas and d/c back to [facility]. Minutes to complete discharge: 45 Discharge Summary Reason For Visit: ACUTE EXACERBATION OF COPD, PNEUMONIA CON Current Active Problems Constipation (Acute) Fecal impaction in rectum (Acute) Schizo-affective schizophrenia (Chronic) Condition: Improved - Instructions Diet, Activity, Other Instructions: You were admitted for trouble breathing and abdominal distention likely due to constipation. You are now having bowel movements. Follow-up: 1. Primary care physician at [facility] within one week for post-hospital evaluation. Continue your home medications as prescribed. Use lactulose, miralax, and enemas as needed to maintain your bowel habits daily . Drink plenty of water to stay hydrated. If you develop chest pain, trouble breathing, unable to have a bowel movement after attempting a bowel regimen, unable to pass gas, develop abdominal distention, vomiting, fevers, worsening abdominal pain, rectal bleeding or any new concerning symptoms please return to the hospital. Need BMP in 3 days to check NA level and kidney function . maintain free water intake adequately hold lactulose for diarrhea Referrals: [facility] [Outside] Disposition: DETENTION FACILITY - Home Medications Comprehensive Discharge Medication List: Ambulatory Orders Albuterol 2.5/Ipratropium 0.5 [Duoneb -] 1 neb NEB Q4H 02/17/18 Aspirin [ASA -] 81 mg PO DAILY 02/17/18 Cholecalciferol (Vitamin D3) [Vitamin D3] 1,000 unit PO DAILY 02/17/18 Fenofibrate Nanocrystallized [Triglide] 160 mg PO DAILY 02/17/18 [place] Carbonate [Eskalith -] 300 mg PO BID 02/17/18 Magnesium Hydroxide [Milk of Magnesia] 400 mg PO PRN 02/17/18 Melatonin/Pyridoxine HCl (B6) [Melatonin 3 mg Tablet] 1 each PO HS 02/17/18 Metformin HCl 500 mg PO BID 02/17/18 Olanzapine [Zyprexa] 20 mg PO DAILY 02/17/18 Lamotrigine [Lamictal] 25 mg PO BID 02/19/18 Lactulose (Oral Use) [Cephulac -] 20 gm PO BID [facility] 02/20/18 This patient is new to me today: No Emergency Visit: Yes ED Registration Date: 02/17/18 Care time: The patient presented to the Emergency Department on the above date and was hospitalized for further evaluation of their emergent condition. Critical Care patient: No - Discharge Referral Referred to [facility] Med P.C.: No
--- NOTE | 2018-02-20 14:48 | PN ---
Teaching Attending Note Name of Resident: Isaac Hubre ATTENDING PHYSICIAN STATEMENT I saw and evaluated the patient. I reviewed the resident's note and discussed the case with the resident. I agree with the resident's findings and plan as documented. SUBJECTIVE: No pain, no SOB , no events over night OBJECTIVE: NAD , cooperative CV; RRR Lungs: CTAB Abd: soft, NT, ND , NL BS Ext: no edema ASSESSMENT AND PLAN: 53 y/o male with h/o constipation , bipolar and schizoaffective DO , Dm , HLP , COPD , and other medical problems who presented with resp distress and was found tohave acute hypoxic hypercapnic resp failure due to fecal impaction 1- Acute hypoxic hypercapnic resp failure due to abd distention from fecal impaction. No evidence of PNA or acute COPD exacerbation. Leukocytosis and elevated ammonia and lactate were secondary to bowel distention and severe impaction - does not require o2 now 2- fecal impaction . add lactulose to his home regimen maintain BMs daily 3- Hypernatremia due to dehydration . improved . encourage po hydratin BMP in 3 days 4-DM and HLP , cont home meds dispo : dc back to [facility]
[2018-02-20 18:29] VITALS: BP 134/84; PULSE 55; TEMP 98.2
== END 2018-02-20 20:29 | DRG 388 ==
LOC: JER 11:57 → JERBED 16:03 → J5S 02-18 09:39
PROVIDERS: ADMIT Internal Medicine; ATTEND Internal Medicine
DX: K56.41 Fecal impaction (principal); J96.01 Acute respiratory failure with hypoxia; J96.02 Acute respiratory failure with hypercapnia; J98.11 Atelectasis; E87.0 Hyperosmolality and hypernatremia; E87.2 Acidosis; J44.9 Chronic obstructive pulmonary disease, unspecified; F25.0 Schizoaffective disorder, bipolar type; I10 Essential (primary) hypertension; E11.9 Type 2 diabetes mellitus without complications; I25.10 Atherosclerotic heart disease of native coronary artery without angina pectoris; R00.0 Tachycardia, unspecified; E86.0 Dehydration; K21.9 Gastro-esophageal reflux disease without esophagitis; D64.9 Anemia, unspecified; D72.829 Elevated white blood cell count, unspecified
CPT/HCPCS: 36415; 36600; 71045-TC-FY; 74177-TC; 80053; 80178; 81003; 82140; 82375; 82550; 82553; 82803; 82962; 83050; 83605; 83735; 84100; 84484; 85025; 85610; 85730; 87040; 87086; 87186; 93005; 93010; 94640; 99285-25; J1644; J7030; J7620

== ENCOUNTER 2018-06-21 23:13 | Observation (INO) | payer OTHER ==
--- NOTE | 2018-06-21 23:26 | PDOC ---
History of Present Illness - General History Source: Patient, Old Records Exam Limitations: No Limitations - History of Present Illness Initial Comments: 06/21/18 23:56 The patient is a 53 year old male, with a significant past medical history of CVA, chronic constipation with abdominal distention, GERD, DM, CAD, anemia, HTN , HLD, COPD, and multiple psychiatric issues (schizoaffective, bipolar, major depression, on multiple medications, who presents to the emergency department via EMS from [facility] with, abdominal distention. As per patient, his abdomen has been distended for an hour. He reports normal PO intake today. The patient is a poor historian due to his clinical condition. He denies any recent fevers, chills, headache or dizziness. He denies any recent chest pain or shortness of breath. Allergies: NKA <Nikia Levy - Last Filed: 06/22/18 02:06> <Glendy Goodson - Last Filed: 06/22/18 03:40> - General Stated Complaint: ABD PAIN Time Seen by Provider: 06/21/18 23:25 Past History <Nikia Levy - Last Filed: 06/22/18 02:06> - Past Medical History CVA: Yes COPD: No GI Disorders: (PEG) HTN: Yes Psychiatric Problems: Yes (Depression,Schizoaffective disorder) - Surgical History GI Surgery: Yes (G Tube) - Immunization History Immunization Up to Date: Yes - Suicide/Smoking/Psychosocial Hx Smoking History: Former smoker Have you smoked in the past 12 months: No Hx Alcohol Use: No Drug/Substance Use Hx: No Substance Use Type: None <Glendy Goodson - Last Filed: 06/22/18 03:40> - Past Medical History Allergies/Adverse Reactions: Allergies Allergy/AdvReac Type Severity Reaction Status Date / Time No Known Allergies Allergy Verified 06/21/18 23:30 Home Medications: Ambulatory Orders Albuterol 2.5/Ipratropium 0.5 [Duoneb -] 1 neb NEB Q4H 02/17/18 Aspirin [ASA -] 81 mg PO DAILY 02/17/18 Cholecalciferol (Vitamin D3) [Vitamin D3] 1,000 unit PO DAILY 02/17/18 Fenofibrate Nanocrystallized [Triglide] 160 mg PO DAILY 02/17/18 [place] Carbonate [Eskalith -] 300 mg PO BID 02/17/18 Magnesium Hydroxide [Milk of Magnesia] 400 mg PO PRN 02/17/18 Melatonin/Pyridoxine HCl (B6) [Melatonin 3 mg Tablet] 1 each PO HS 02/17/18 Olanzapine [Zyprexa] 20 mg PO DAILY 02/17/18 metFORMIN HCL [Metformin HCl] 500 mg PO BID 02/17/18 Lamotrigine [Lamictal] 25 mg PO BID 02/19/18 Lactulose (Oral Use) [Cephulac -] 20 gm PO BID udc 02/20/18 Carvedilol [Coreg -] 3.125 mg PO BID 06/22/18 Nicotine [Nicotine Patch 14mg/24 hr] 1 each TD DAILY 06/22/18 Simvastatin [Zocor] 10 mg PO HS 06/22/18 Sodium Phosphate,[place]-Dibasic [Fleet Enema] 133 ml RC PRN PRN 06/22/18 Zinc Oxide 20% Topical Oint 454 gm NR TID 06/22/18 Review of Systems - Review of Systems Able to Perform ROS?: Yes Comments:: 06/21/18 23:56 GENERAL/CONSTITUTIONAL: No fever or chills. No weakness. HEAD, EYES, EARS, NOSE AND THROAT: No change in vision. No ear pain or discharge. No sore throat. CARDIOVASCULAR: No chest pain or shortness of breath. RESPIRATORY: No cough, wheezing, or hemoptysis. +GASTROINTESTINAL: Abdominal distention. Constipation (chronic). No nausea, vomiting, or diarrhea. GENITOURINARY: No dysuria, frequency, or change in urination. MUSCULOSKELETAL: No joint or muscle swelling or pain. No neck or back pain. SKIN: No rash NEUROLOGIC: No headache, vertigo, loss of consciousness, or change in strength/ sensation. ENDOCRINE: No increased thirst. No abnormal weight change. HEMATOLOGIC/LYMPHATIC: No anemia, easy bleeding, or history of blood clots. ALLERGIC/IMMUNOLOGIC: No hives or skin allergy. All Other Systems: Reviewed and Negative <Nikia Levy - Last Filed: 06/22/18 02:06> *Physical Exam - Vital Signs Last Vital Signs Temp Pulse Resp BP Pulse Ox 98.1 F 95 H 18 141/78 96 06/21/18 23:20 06/21/18 23:20 06/21/18 23:20 06/21/18 23:20 06/21/18 23:20 - Physical Exam Comments: 06/21/18 23:56 GENERAL: Awake, alert, and fully oriented, in no acute distress HEAD: No signs of trauma EYES: PERRLA, EOMI, sclera anicteric, conjunctiva clear ENT: Auricles normal inspection, hearing grossly normal, nares patent, oropharynx clear without exudates. Moist mucosa NECK: Normal ROM, supple, no lymphadenopathy, JVD, or masses LUNGS: Breath sounds equal, clear to auscultation bilaterally. No wheezes, and no crackles HEART: Regular rate and rhythm, normal S1 and S2, no murmurs, rubs or gallops +ABDOMEN: Abdominal distention. Tympanic to percussion. Some high pitched bowel sounds diffuse. Nontender, normoactive bowel sounds. No guarding, no rebound. No masses EXTREMITIES: No edema. No clubbing or cyanosis. No erythema or tenderness +NEUROLOGICAL: 2/5 strength of the bilateral lower extremities. 5/5 motor strength of the bilateral upper extremities. Cranial nerves II through XII grossly intact. Normal speech SKIN: Warm, Dry, normal turgor, no rashes or lesions noted. <Nikia Levy - Last Filed: 06/22/18 02:06> Heart Score/ECG Review - ECG Intrepretation Rhythm: Regular Rhythm - Tarpley Tarpley: Normal - QRS Poor R Wave Progression: No Q Wave Present: No - ST and T Early Repolarization: No Non Specific ST-T Wave changes: No Flattened T Waves: No Prolonged Q-T Interval: No - ECG Impressions Normal ECG: Yes Non-specific ST Elevation: No Ischemic Changes: No <Gelndy Goodson - Last Filed: 06/22/18 03:40> ED Treatment Course - LABORATORY CBC & Chemistry Diagram: 06/22/18 00:15 06/22/18 00:15 - RADIOLOGY Radiograph Interpretation: 06/22/18 02:06 EXAM: CT abdomen and pelvis with IV contrast. Clinical indication: Abdominal pain. Rule out obstruction. There are no prior studies available for comparison. Technique: Axial IV contrast-enhanced CT images of the abdomen and pelvis were obtained followed by coronal and sagittal reformats. Findings: There is elevation left hemidiaphragm with some left basilar atelectatic changes. The remainder of the visualized portions of the lower thorax are within normal limits. There is no free intra-abdominal gas or fluid. The liver, gallbladder, adrenals, pancreas, and spleen are normal. There is no hydronephrosis or renal calculi bilaterally. The bilateral kidneys are normal. There are no enlarged abdominal or pelvic lymph nodes, by size criteria. The urinary bladder is unremarkable. There is extensive fecal impaction within the rectum extending into the left colon. There is trace fluid adjacent appendix. Deep does not demonstrate any overt surrounding inflammatory changes. Clinical correlation is recommended. The remainder of the bowel is unremarkable. The visualized bony structures are within normal limits for the patient's age. Impression: 1. Trace of free fluid around the appendix, without obvious evidence of appendicitis. Clinical correlation recommended. 2. Fecal impaction within the rectum and left colon. Correlate clinically with signs and symptoms of constipation. 3. Elevation of the left hemidiaphragm. 4. Otherwise, unremarkable CT of the abdomen and pelvis. Read by: Fernando Bean MD <Nikia Levy - Last Filed: 06/22/18 02:06> - LABORATORY CBC & Chemistry Diagram: 06/22/18 00:15 06/22/18 00:15 <Glendy Goodson - Last Filed: 06/22/18 03:40> Medical Decision Making - Medical Decision Making 06/21/18 23:45 Pt comes with abd distension; he has had fecal impaction in the past. NGT 16 Fr placed on arrival to the ER and placed to suction 06/22/18 00:45 Pt is hooked up to suction, but his abd distension is not improving. Pt removed NGT ad refusing another 06/22/18 01:15 Labs are returning normal; he will be sent for CT scan 06/22/18 03:38 CT scan demonstrates distension and stool impaction. Distended intestines throughout. Pt will be admitted to the hospitalist team. I ordered a soap suds enema to start patient's disimpaction. <Glendy Goodson - Last Filed: 06/22/18 03:40> *DC/Admit/Observation/Transfer - Attestations Scribe Attestion: 06/21/18 23:56 Documentation prepared by Nikia Levy, acting as medical superintendent for Glendy Goodson MD. <Nikia Levy - Last Filed: 06/22/18 02:06> - Discharge Dispostion Decision to Admit order: Yes <Glendy Goodson - Last Filed: 06/22/18 03:40> Diagnosis at time of Disposition: Fecal impaction in rectum, Distended abdomen - Discharge Dispostion Condition at time of disposition: Guarded - Referrals Referrals: Nicholas Smith [Primary Care Provider] -
[2018-06-21] MEDS ORDERED: SODIUM CHLORIDE 0.9% 500 ML INFUS.BAG IV ONE (23:51)
[2018-06-21 23:52] VITALS: BMI 23.5
[2018-06-22 00:31] LABS: BASO % 0.7 % (0-2.0); HEMATOCRIT 37.5 % (35.4-49); HEMOGLOBIN 11.7 GM/dL (11.7-16.9); LYMPH % 14.9 % (8-40); MCHC 31.1 g/dl (32.0-35.9); MEAN CELL VOLUME 83.6 fl (80-96); MEAN PLT VOLUME 10.8 fl (7.5-11.1); MONO % 6.3 % (3.8-10.2); NEUT % 76.1 % (42.8-82.8); PLATELET COUNT 295 K/MM3 (134-434); RBC 4.49 M/mm3 (4.00-5.60); WHITE BLOOD COUNT 13.9 K/mm3 (4.0-10.0)
[2018-06-22 01:07] LABS: ALBUMIN 3.9 g/dl (3.4-5.0); ANION GAP 6 MMOL/L (8-16); BLOOD UREA NITROGEN 11 mg/dL (7-18); CALCIUM 9.7 mg/dL (8.5-10.1); CHLORIDE 109 mmol/L (98-107); CO2 26 mmol/L (21-32); CREATININE 0.7 mg/dL (0.7-1.3); GLUCOSE,RANDOM 108 mg/dL (74-106); POTASSIUM 3.8 mmol/L (3.5-5.1); SGOT/AST 30 U/L (15-37); SGPT/ALT 45 U/L (12-78); SODIUM 141 mmol/L (136-145)
[2018-06-22 01:08] LABS: ALK PHOS 44 U/L (45-117); BILIRUBIN,TOTAL 0.2 mg/dL (0.2-1.0); TOT PROT 7.8 g/dl (6.4-8.2)
--- NOTE | 2018-06-22 03:11 | PN ---
Teaching Attending Note Name of Resident: Dev Harrington ATTENDING PHYSICIAN STATEMENT I saw and evaluated the patient. I reviewed the resident's note and discussed the case with the resident. I agree with the resident's findings and plan as documented. SUBJECTIVE: Patient is a 53 year old man with a significant past medical history of CVA, chronic constipation with abdominal distention, GERD, DM, CAD, anemia, HTN, HLD , COPD (on Home O2?), and multiple psychiatric issues (schizoaffective, bipolar , major depression), on multiple medications, who presents to the ER via EMS from [facility] with abdominal distention and SOB. As per patient, his abdomen has been distended for an hour. He reports normal PO intake today. The patient says his last BM was either 3 days ago or ten days ago. Had a colonoscopy recently. Denies fevers, chills, headache or chest pain. OBJECTIVE: Alert Vital Signs Period Temp Pulse Resp BP Sys/Pete Pulse Ox Last 24 Hr 98.1 F 95-105 18-20 135-141/78-99 96 HEENT: No Jaundice, eye redness or discharge, PERRLA, EOMI. Normocephalic, atraumatic. External ears are normal and hearing is grossly intact. No nasal discharge. Neck: Supple, nontender. No palpable adenopathy or thyromegaly. No JVD Chest: Good effort. Clear to auscultation and percussion. Heart: Regular. No S3, rub or murmur Abdomen: Not distended, soft, nontender and no HSM. Uses diapers. No rebound or guarding. Normoactive bowel sounds. Ext: Peripheral pulses intact. No leg edema. Skin: Warm and dry. No petechiae, rash or ecchymosis. Neuro: Alert. Oriented to person and place. CN 2-12 grossly intact. Sensation grossly intact in all four extremities and DTR are symmetric. Home Medications Medication Instructions Recorded Albuterol 2.5/Ipratropium 0.5 1 neb NEB Q4H 02/17/18 [Duoneb -] Aspirin [ASA -] 81 mg PO DAILY 02/17/18 Cholecalciferol (Vitamin D3) 1,000 unit PO DAILY 02/17/18 [Vitamin D3] Fenofibrate Nanocrystallized 160 mg PO DAILY 04/29/18 [Triglide] [place] Carbonate [Eskalith -] 300 mg PO BID 02/17/18 Magnesium Hydroxide [Milk of 400 mg PO PRN 02/17/18 Magnesia] Melatonin/Pyridoxine HCl (B6) 1 each PO HS 02/17/18 [Melatonin 3 mg Tablet] Olanzapine [Zyprexa] 20 mg PO DAILY 02/17/18 metFORMIN HCL [Metformin HCl] 500 mg PO BID 02/17/18 Lamotrigine [Lamictal] 25 mg PO BID 02/19/18 Lactulose (Oral Use) [Cephulac -] 20 gm PO BID udc 02/20/18 Carvedilol [Coreg -] 3.125 mg PO BID 06/22/18 Nicotine [Nicotine Patch 14mg/24 1 each TD DAILY 06/22/18 hr] Simvastatin [Zocor] 10 mg PO HS 06/22/18 Sodium Phosphate,[place]-Dibasic 133 ml RC PRN PRN 06/22/18 [Fleet Enema] Zinc Oxide 20% Topical Oint 454 gm NR TID 06/22/18 Abnormal Lab Results 06/22/18 06/22/18 00:15 00:15 WBC 13.9 H MCHC 31.1 L Absolute Neuts (auto) 10.6 H Chloride 109 H Anion Gap 6 L Random Glucose 108 H D Alkaline Phosphatase 44 L ASSESSMENT AND PLAN: 1. Fecal impaction - CT also shows elevated left hemidiaphrgm, and free fluid around the appendix. Getting an enema and will continue with miralax 17 gm bid. Clear liquid diet for now. Leukocytosis likely due to stress. Will check UA and CXR. Surgery consult. Treat with doune PRN and continue his anti-psychotic medications. 2. DM - For now, we will hold the home diabetes drugs and implement sliding scale insulin regimen. Provide comprehensive diabetes care with patient teaching and counseling about the importance of euglycemia, eye care and foot care. 3. DVT prophylaxis - Lovenox 40 mg SQ q 24 hours. 4. Advance directives - Full code
[2018-06-22] MEDS ORDERED: SODIUM CHLORIDE 1,000 ML IV SCH (03:45)
--- NOTE | 2018-06-22 04:21 | HP ---
CHIEF COMPLAINT: abdominal distension HISTORY OF PRESENT ILLNESS: Patient is a 53 yo M, poor historian, with a PMHx of CVA, chronic constipation, GERD, DM, Anemia, HTN, COPD, Bipolar disorder, schizoaffective, came from [facility] and presented with abdominal distention and SOB for a few hours. He says he has been constipated for 12 days. He denies abdominal pain, nausea, vomiting. Patient was admitted in 02/17 because of hypoxic resp failure due to constipation and was disimpacted. Patient says he has SOB but he relates that to not being on his home oxygen today. Patient said he had a recent colonoscopy 3 weeks ago which was normal. He denies fevers, chills, headaches, dizziness, edema, dysuria, weight changes, blood in stool. ER course was notable for: (1)CT: Fecal impaction (2)Enema, active Bowel movements Recent Travel: PAST MEDICAL HISTORY: per HPI PAST SURGICAL HISTORY: n/a Social History: Smoking: denies Alcohol: denies Drugs: denies Family History: Allergies No Known Allergies Allergy (Verified 06/21/18 23:30) HOME MEDICATIONS: Home Medications Medication Instructions Recorded Albuterol 2.5/Ipratropium 0.5 1 neb NEB Q4H 02/17/18 [Duoneb -] Aspirin [ASA -] 81 mg PO DAILY 02/17/18 Cholecalciferol (Vitamin D3) 1,000 unit PO DAILY 02/17/18 [Vitamin D3] Fenofibrate Nanocrystallized 160 mg PO DAILY 02/17/18 [Triglide] [place] Carbonate [Eskalith -] 300 mg PO BID 02/17/18 Magnesium Hydroxide [Milk of 400 mg PO PRN 02/17/18 Magnesia] Melatonin/Pyridoxine HCl (B6) 1 each PO HS 02/17/18 [Melatonin 3 mg Tablet] Olanzapine [Zyprexa] 20 mg PO DAILY 02/17/18 metFORMIN HCL [Metformin HCl] 500 mg PO BID 02/17/18 Lamotrigine [Lamictal] 25 mg PO BID 02/19/18 Lactulose (Oral Use) [Cephulac -] 20 gm PO BID udc 02/20/18 Carvedilol [Coreg -] 3.125 mg PO BID 06/22/18 Nicotine [Nicotine Patch 14mg/24 1 each TD DAILY 06/22/18 hr] Simvastatin [Zocor] 10 mg PO HS 06/22/18 Sodium Phosphate,[place]-Dibasic 133 ml RC PRN PRN 06/22/18 [Fleet Enema] Zinc Oxide 20% Topical Oint 454 gm NR TID 06/22/18 REVIEW OF SYSTEMS CONSTITUTIONAL: Absent: fever, chills, diaphoresis, generalized weakness, malaise, loss of appetite, weight change HEENT: Absent: rhinorrhea, nasal congestion, throat pain, throat swelling, difficulty swallowing, mouth swelling, ear pain, eye pain, visual changes CARDIOVASCULAR: Absent: chest pain, syncope, palpitations, irregular heart rate, lightheadedness , peripheral edema RESPIRATORY: shortness of breath Absent: cough, dyspnea with exertion, orthopnea, wheezing, stridor, hemoptysis GASTROINTESTINAL: abdominal distension Absent: abdominal pain, nausea, vomiting, diarrhea, constipation, melena, hematochezia GENITOURINARY: Absent: dysuria, frequency, urgency, hesitancy, hematuria, flank pain, genital pain MUSCULOSKELETAL: Absent: myalgia, arthralgia, joint swelling, back pain, neck pain SKIN: Absent: rash, itching, pallor HEMATOLOGIC/IMMUNOLOGIC: Absent: easy bleeding, easy bruising, lymphadenopathy, frequent infections ENDOCRINE: Absent: unexplained weight gain, unexplained weight loss, heat intolerance, cold intolerance NEUROLOGIC: Absent: headache, focal weakness or paresthesias, dizziness, unsteady gait, seizure, mental status changes, bladder or bowel incontinence PSYCHIATRIC: Absent: anxiety, depression, suicidal or homicidal ideation, hallucinations. PHYSICAL EXAMINATION Vital Signs - 24 hr 06/21/18 06/22/18 23:20 00:59 Temperature 98.1 F Pulse Rate 95 H Pulse Rate [ 105 H Apical] Respiratory 18 20 Rate Blood Pressure 141/78 Blood Pressure 135/99 [Left Arm] O2 Sat by Pulse 96 Oximetry (%) GENERAL: Awake, alert, and fully oriented, in no acute distress. HEAD: Normal with no signs of trauma. EYES: Pupils equal, round and reactive to light, extraocular movements intact, sclera anicteric, conjunctiva clear. No lid lag. EARS, NOSE, THROAT: Ears normal, nares patent, oropharynx clear without exudates. Moist mucous membranes. NECK: Normal range of motion, supple without lymphadenopathy, JVD, or masses. LUNGS: Breath sounds equal, clear to auscultation bilaterally. No wheezes, and no crackles. No accessory muscle use. HEART: Regular rate and rhythm, normal S1 and S2 without murmur, rub or gallop. ABDOMEN: Soft, nontender, not distended, normoactive bowel sounds, no guarding, no rebound, no masses. No hepatomegaly or splenomegaly. MUSCULOSKELETAL: Normal range of motion at all joints. No bony deformities or tenderness. No CVA tenderness. UPPER EXTREMITIES: 2+ pulses, warm, well-perfused. No cyanosis. No clubbing. No peripheral edema. LOWER EXTREMITIES: 2+ pulses, warm, well-perfused. No calf tenderness. No peripheral edema. NEUROLOGICAL: Cranial nerves II-XII intact. Normal speech. Normal gait. PSYCHIATRIC: Cooperative. Good eye contact. Appropriate mood and affect. SKIN: Warm, dry, normal turgor, no rashes or lesions noted, normal capillary refill. Laboratory Results - last 24 hr 06/22/18 06/22/18 06/22/18 00:15 00:15 00:15 WBC 13.9 H RBC 4.49 Hgb 11.7 Hct 37.5 D MCV 83.6 MCH 26.0 MCHC 31.1 L RDW 15.0 Plt Count 295 MPV 10.8 Absolute Neuts (auto) 10.6 H Neutrophils % 76.1 Lymphocytes % 14.9 Monocytes % 6.3 Eosinophils % 2.0 Basophils % 0.7 Nucleated RBC % 0 Sodium 141 Potassium 3.8 Chloride 109 H Carbon Dioxide 26 Anion Gap 6 L BUN 11 Creatinine 0.7 Creat Clearance w eGFR > 60 Random Glucose 108 H D Lactic Acid 1.4 Calcium 9.7 Total Bilirubin 0.2 AST 30 ALT 45 Alkaline Phosphatase 44 L Total Protein 7.[address]: Fecal impaction, elevated left hemidiaphrgm, and free fluid around the appendix. ASSESSMENT/PLAN: #Abdominal Distention -secondary to fecal impaction per CT ABD -Enema in ER, in AM -Miralax BID -Clear liquid diet -cxr -u/a, bcx, ucx -GI consult -NS @ 50ml/hour #Leukocytosis -likely reactive #HTN -monitor -resume med: med rec #CAD -continue aspirin #Bipolar D/O cont. lithium, zyprexa MED REC #DM -ISS -BGM ACHS #FEN -NS @ 50ml/ hour -WNL -Clear liquids #DVT -Hep SQ OBS Visit type - Emergency Visit Emergency Visit: Yes ED Registration Date: 06/22/18 Care time: The patient presented to the Emergency Department on the above date and was hospitalized for further evaluation of their emergent condition. - New Patient This patient is new to me today: Yes Date on this admission: 06/22/18 - Critical Care Critical Care patient: No Hospitalist Screening - Colonoscopy Questionnaire Colonoscopy Questionnaire: Colonoscopy Questionnaire - Patient: 50 - 75 years old and never had a screening colonoscopy: Unknown History of colon or rectal polyps, or CA: Unknown History of IBD, Crohn's disease or UC: Unknown History of abdominal radiation therapy as a child: Unknown - Relative: 1 with colon or rectal CA, or polyps at age 60 or younger: Unknown Colon or rectal CA diagnosed at age 45 or younger: Unknown Multiple relatives with colon or rectal CA: Unknown - Outcome: Screening Result: Negative Screen
[2018-06-22 04:33] LABS: URINE APPEARANCE CLEAR; URINE BILIRUBIN NEGATIVE (<2.0 mg/dL); URINE COLOR YELLOW; URINE GLUCOSE (UA) NEGATIVE (NEGATIVE); URINE KETONE NEGATIVE (NEGATIVE); URINE LEUK ESTERASE NEGATIVE (NEGATIVE); URINE NITRITE NEGATIVE (NEGATIVE); URINE PROTEIN NEGATIVE (NEGATIVE); URINE UROBILINOGEN NEGATIVE mg/dL (0.2-1.0)
[2018-06-22] MEDS: HEPARIN NA (PORCINE) 5,000 UNITS/ML 1ML VIAL SQ SCH ×3 (05:52→23:50)
[2018-06-22 08:36] LABS: HEMATOCRIT 33.9 % (35.4-49); HEMOGLOBIN 10.5 GM/dL (11.7-16.9); MCH 26.1 pg (25.7-33.7); MCHC 30.9 g/dl (32.0-35.9); MEAN CELL VOLUME 84.3 fl (80-96); MEAN PLT VOLUME 10.4 fl (7.5-11.1); PLATELET COUNT 245 K/MM3 (134-434); RBC 4.02 M/mm3 (4.00-5.60); WHITE BLOOD COUNT 11.5 K/mm3 (4.0-10.0)
[2018-06-22 09:01] LABS: ALBUMIN 3.5 g/dl (3.4-5.0); ALK PHOS 37 U/L (45-117); ANION GAP 9 MMOL/L (8-16); BILIRUBIN,TOTAL 0.2 mg/dL (0.2-1.0); BLOOD UREA NITROGEN 9 mg/dL (7-18); CHLORIDE 111 mmol/L (98-107); CO2 24 mmol/L (21-32); CREATININE 0.6 mg/dL (0.7-1.3); GLUCOSE,RANDOM 104 mg/dL (74-106); MAGNESIUM 2.1 mg/dL (1.8-2.4); PHOSPHOROUS 3.2 mg/dL (2.5-4.9); POTASSIUM 3.8 mmol/L (3.5-5.1); SGOT/AST 24 U/L (15-37); SGPT/ALT 36 U/L (12-78); SODIUM 144 mmol/L (136-145); TOT PROT 6.6 g/dl (6.4-8.2)
[2018-06-22 09:05] LABS: INR 1.12 (0.83-1.09); PROTHROMBIN TIME (PATIENT) 12.6 SEC (9.7-13.0)
[2018-06-22] MEDS: POLYETHYLENE GLYCOL 3350 119 GM BTL PO SCH ×2 (09:05→23:49)
[2018-06-22] MEDS: ASPIRIN 81 MG CHEWABLE TABLETS PO SCH (09:06)
[2018-06-22] MEDS: ALBUTEROL SO4 2.5/IPRATROPIUM 0.5 INH SOL 3 ML VIAL.NEB. NEB PRN ×3 (09:12→16:17)
--- NOTE | 2018-06-22 11:13 | CON.GI ---
Consult Consult Specialty:: GI Referred by:: Oliver FULTON Reason for Consultation:: Abdominal distention - History of Present Illness Chief Complaint: Sent from [place] with abdominal distention History of Present Illness: Pt wih CVA and psychiatric illness, on multiple constipating medications, sent with distended abdomen. Patient cannot give any history. Review of images shows that he has been here before with a similar presentation. 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 - Alcohol/Substance Use Hx Alcohol Use: No - Smoking History Smoking history: Former smoker Have you smoked in the past 12 months: No - Social History Usual Living Arrangement: [facility] Home Medications - Allergies Allergies/Adverse Reactions: Allergies Allergy/AdvReac Type Severity Reaction Status Date / Time No Known Allergies Allergy Verified 06/21/18 23:30 - Home Medications Home Medications: Ambulatory Orders Albuterol 2.5/Ipratropium 0.5 [Duoneb -] 1 neb NEB Q4H 02/17/18 Aspirin [ASA -] 81 mg PO DAILY 02/17/18 Cholecalciferol (Vitamin D3) [Vitamin D3] 1,000 unit PO DAILY 02/17/18 Fenofibrate Nanocrystallized [Triglide] 160 mg PO DAILY 02/17/18 [place] Carbonate [Eskalith -] 300 mg PO BID 02/17/18 Magnesium Hydroxide [Milk of Magnesia] 400 mg PO PRN 02/17/18 Melatonin/Pyridoxine HCl (B6) [Melatonin 3 mg Tablet] 1 each PO HS 02/17/18 Olanzapine [Zyprexa] 20 mg PO DAILY 02/17/18 metFORMIN HCL [Metformin HCl] 500 mg PO BID 02/17/18 Lamotrigine [Lamictal] 25 mg PO BID 02/19/18 Lactulose (Oral Use) [Cephulac -] 20 gm PO BID udc 02/20/18 Carvedilol [Coreg -] 3.125 mg PO BID 06/22/18 Nicotine [Nicotine Patch 14mg/24 hr] 1 each TD DAILY 06/22/18 Simvastatin [Zocor] 10 mg PO HS 06/22/18 Sodium Phosphate,[place]-Dibasic [Fleet Enema] 133 ml RC PRN PRN 06/22/18 Zinc Oxide 20% Topical Oint 454 gm NR TID 06/22/18 Physical Exam-GI Vital Signs: Vital Signs Temperature 98.1 F 06/22/18 10:06 Pulse Rate 63 06/22/18 10:06 Respiratory Rate 20 06/22/18 10:06 Blood Pressure 105/72 06/22/18 10:06 O2 Sat by Pulse Oximetry (%) 99 06/22/18 06:09 Gastrointestinal Inspection: Yes: Distention (Abdomen distended, tympanitic, but not tender. Dullness to percussion is preserved over the liver.) ...Auscultate: Yes: Hyperactive Bowel Sounds Labs: CBC, BMP 06/22/18 08:00 06/22/18 08:00 INR, PTT INR 1.12 (0.83-1.09) H 06/22/18 08:00 Imaging - Results Cat Scan: Image Reviewed (Report pending. Image shows large fecal impaction, diffuse colonic distention.) Assessment/Plan Agree with enemas (not given yet). Once impaction is relieved would try either daily stimulant laxative (bisacodyl or senna) in combination with peg-[id number] (Miralax, Glycolax, etc.)
--- NOTE | 2018-06-22 11:57 | CONSULT ---
- Consultation REQUESTING PROVIDER: CONSULT REQUEST: We have been asked to surgically evaluate this patient for abdominal distention PCP:Lin Culver HISTORY OF PRESENT ILLNESS: 53 y/o male presented w/ ? painless distended abdomen; he has a h/o psychiatric illness on # constipating meds; rest of hx. per chart PMHx: psych issues PSHx: none Home Medications Medication Instructions Recorded Albuterol 2.5/Ipratropium 0.5 1 neb NEB Q4H 02/17/18 [Duoneb -] Aspirin [ASA -] 81 mg PO DAILY 02/17/18 Cholecalciferol (Vitamin D3) 1,000 unit PO DAILY 02/17/18 [Vitamin D3] Fenofibrate Nanocrystallized 160 mg PO DAILY 02/17/18 [Triglide] [place] Carbonate [Eskalith -] 300 mg PO BID 02/17/18 Magnesium Hydroxide [Milk of 400 mg PO PRN 02/17/18 Magnesia] Melatonin/Pyridoxine HCl (B6) 1 each PO HS 02/17/18 [Melatonin 3 mg Tablet] Olanzapine [Zyprexa] 20 mg PO DAILY 02/17/18 metFORMIN HCL [Metformin HCl] 500 mg PO BID 02/17/18 Lamotrigine [Lamictal] 25 mg PO BID 02/19/18 Lactulose (Oral Use) [Cephulac -] 20 gm PO BID udc 02/20/18 Carvedilol [Coreg -] 3.125 mg PO BID 06/22/18 Nicotine [Nicotine Patch 14mg/24 1 each TD DAILY 06/22/18 hr] Simvastatin [Zocor] 10 mg PO HS 06/22/18 Sodium Phosphate,[place]-Dibasic 133 ml RC PRN PRN 06/22/18 [Fleet Enema] Zinc Oxide 20% Topical Oint 454 gm NR TID 06/22/18 Allergies Allergy/AdvReac Type Severity Reaction Status Date / Time No Known Allergies Allergy Verified 06/21/18 23:30 PHYSICAL EXAM: GENERAL: Awake, alert, in no acute distress. HEAD: Normal with no signs of trauma. EYES: sclera anicteric, conjunctiva clear. NECK: Normal ROM, supple without lymphadenopathy, JVD, or masses. ABDOMEN: Soft, nontender, gaseous distention; sluggish bowel sounds, no guarding , no rebound, no masses. No organomegaly. No hernias MUSCULOSKELETAL: Normal ROM at all joints. No bony deformities or tenderness. No CVA tenderness. UPPER EXTREMITIES: 2+ pulses, warm, well-perfused. No cyanosis. Cap refill <2 seconds. No peripheral edema. LOWER EXTREMITIES: 2+ pulses, warm, well-perfused. No calf tenderness. No peripheral edema. NEUROLOGICAL: Normal speech, gait not observed. PSYCH: Cooperative. poor eye contact. Inappropriate mood and affect. SKIN: Warm, dry, normal turgor, no rashes or lesions noted. Vital Signs Temperature 98.1 F 06/22/18 10:06 Pulse Rate 63 06/22/18 10:06 Respiratory Rate 20 06/22/18 10:06 Blood Pressure 105/72 06/22/18 10:06 O2 Sat by Pulse Oximetry (%) 99 06/22/18 06:09 Lab Results WBC 11.5 K/mm3 (4.0-10.0) H 06/22/18 08:00 RBC 4.02 M/mm3 (4.00-5.60) 06/22/18 08:00 Hgb 10.5 GM/dL (11.7-16.9) L 06/22/18 08:00 Hct 33.9 % (35.4-49) L 06/22/18 08:00 MCV 84.3 fl (80-96) 06/22/18 08:00 MCHC 30.9 g/dl (32.0-35.9) L 06/22/18 08:00 RDW 15.0 % (11.9-15.9) 06/22/18 08:00 Plt Count 245 K/MM3 (134-434) 06/22/18 08:00 Sodium 144 mmol/L (136-145) 06/22/18 08:00 Potassium 3.8 mmol/L (3.5-5.1) 06/22/18 08:00 Chloride 111 mmol/L (98-107) H 06/22/18 08:00 Carbon Dioxide 24 mmol/L (21-32) 06/22/18 08:00 Anion Gap 9 MMOL/L (8-16) 06/22/18 08:00 BUN 9 mg/dL (7-18) 06/22/18 08:00 Creatinine 0.6 mg/dL (0.7-1.3) L 06/22/18 08:00 Random Glucose 104 mg/dL (74-106) 06/22/18 08:00 Calcium 9.0 mg/dL (8.5-10.1) 06/22/18 08:00 INR 1.12 (0.83-1.09) H 06/22/18 08:00 CT a/p reviewed. IMP: no evidence of an acute surgical abdomen\ PLAN: Medical management of fecal impaction. Pasha Schroeder MD FACS
[2018-06-22] MEDS ORDERED: BISACODYL 5 MG TABLET.DR (FP) PO ONE (14:42)
--- NOTE | 2018-06-22 14:44 | PN ---
Progress Note (short form) - Note Progress Note: pt seen/ examined. chart reviewed comfortable all consults noted Vital Signs Temp 98.1 F 06/22/18 10:06 Pulse 63 06/22/18 13:30 Resp 20 06/22/18 13:30 BP 116/62 06/22/18 13:30 Pulse Ox 99 06/22/18 06:09 Intake & Output 06/21/18 06/22/18 06/22/18 23:59 11:59 23:59 Intake Total 300 Output Total 700 Balance -400 Weight 168 lb 12.8 oz 168 lb 12.8 oz Intake: IV 200 Normal Saline - 1,000 ml 200 @ 50 mls/hr IV ASDIR [facility] Rx#:[id number] Oral 100 Output: Urine 700 Void 700 Other: Voiding Method Urinal Bowel Movement Yes # Bowel Movements 1 Height 5 ft 11 in Body Mass Index (BMI) 23.5 Weight Measurement Method Patient Lift Scale Weight Measurement Method Est/Stated by Patient Active Medications Albuterol/Ipratropium (Duoneb -) 1 amp NEB Q4H PRN PRN Reason: SHORT OF BREATH/WHEEZING Last Admin: 06/22/18 11:46 Dose: 1 amp Aspirin (Asa -) 81 mg PO DAILY [facility] Last Admin: 06/22/18 09:06 Dose: 81 mg Atorvastatin Calcium (Lipitor -) 10 mg PO [facility] Bisacodyl (Dulcolax -) 10 mg PO DAILY ONE Stop: 06/22/18 14:43 Heparin Sodium (Porcine) (Heparin -) 5,000 unit SQ TID [facility] Last Admin: 06/22/18 05:52 Dose: Not Given Polyethylene Glycol (Miralax (For Daily Use) -) 17 gm PO BID [facility] Last Admin: 06/22/18 09:05 Dose: 17 grams CBC, BMP 06/22/18 08:00 06/22/18 08:00 ct scan - reviewed. Physical exam Conscious cooperative . heart sounds regular Neck supple. No JVD Abdomen--firm . Extremities--trace edema Neuro--alert and awake Assessment and plan enema stool softners d/c fluids. dulcolax tabs will follow
[2018-06-22] MEDS: SODIUM PHOSPHATE/NA BIPHOS 133 ML ENEMA PR SCH (16:28)
[2018-06-22] MEDS ORDERED: ATORVASTATIN CA 10 MG TABLET (FP) PO SCH (22:00)
[2018-06-23] MEDS ORDERED: MELATONIN 5 MG TABLETS PO PRN (00:27)
[2018-06-23] MEDS: HEPARIN NA (PORCINE) 5,000 UNITS/ML 1ML VIAL SQ SCH ×2 (07:02→15:08)
[2018-06-23] MEDS: ALBUTEROL SO4 2.5/IPRATROPIUM 0.5 INH SOL 3 ML VIAL.NEB. NEB PRN ×2 (08:22→18:14)
[2018-06-23] MEDS ORDERED: PT OWN MED DRAWER 7, Y5N ONE (09:55)
[2018-06-23] MEDS: POLYETHYLENE GLYCOL 3350 119 GM BTL PO SCH (10:11)
[2018-06-23] MEDS: SODIUM PHOSPHATE/NA BIPHOS 133 ML ENEMA PR SCH (10:12)
[2018-06-23] MEDS: ASPIRIN 81 MG CHEWABLE TABLETS PO SCH (10:12)
--- NOTE | 2018-06-23 12:16 | PN ---
Progress Note (short form) - Note Progress Note: Pt hungry, wants to eat. Abdomen much less distended now, quite soft, no tenderness. Will advance diet and order laxative daily.
--- NOTE | 2018-06-23 14:36 | DS ---
Physical Examination Vital Signs: Vital Signs Temperature 98.2 F 06/23/18 10:00 Pulse Rate 70 06/23/18 10:00 Respiratory Rate 18 06/23/18 10:00 Blood Pressure 96/68 06/23/18 10:00 O2 Sat by Pulse Oximetry (%) 95 06/22/18 21:00 Findings/Remarks: Awake and comfortable having large bowel movements now Denies pain Afebrile Constitutional: Yes: No Distress Neck: Yes: Supple Gastrointestinal: Yes: Soft (Decreased distention significantly nontender Bowel sounds present) Labs: CBC, BMP 06/22/18 08:00 06/22/18 08:00 Discharge Summary Reason For Visit: ABD DISTENSION;SCHIZOAFFECTIVE SCHIZ;FECAL IMACTIO Current Active Problems Distended abdomen (Acute) Fecal impaction in rectum (Acute) Hospital Course: Admitted for fecal impaction/and abdominal pain treated with laxatives/Enemas Much better--- resolved [facility]--on laxatives Discussed with nursing staff Medications reviewed and reconciled Condition: Guarded - Instructions Referrals: Nicholas Smith [Primary Care Provider] - Disposition: [facility] FACILITY - Home Medications Comprehensive Discharge Medication List: Ambulatory Orders Albuterol 2.5/Ipratropium 0.5 [Duoneb -] 1 neb NEB Q4H 02/17/18 Aspirin [ASA -] 81 mg PO DAILY 02/17/18 Cholecalciferol (Vitamin D3) [Vitamin D3] 1,000 unit PO DAILY 02/17/18 Fenofibrate Nanocrystallized [Triglide] 160 mg PO DAILY 02/17/18 [place] Carbonate [Eskalith -] 300 mg PO BID 02/17/18 Magnesium Hydroxide [Milk of Magnesia] 400 mg PO PRN 02/17/18 Melatonin/Pyridoxine HCl (B6) [Melatonin 3 mg Tablet] 1 each PO HS 02/17/18 Olanzapine [Zyprexa] 20 mg PO DAILY 02/17/18 metFORMIN HCL [Metformin HCl] 500 mg PO BID 02/17/18 Lamotrigine [Lamictal] 25 mg PO BID 02/19/18 Lactulose (Oral Use) [Cephulac -] 20 gm PO BID udc 02/20/18 Carvedilol [Coreg -] 3.125 mg PO BID 09/01/18 Nicotine [Nicotine Patch 14mg/24 hr] 1 each TD DAILY 06/22/18 Simvastatin [Zocor -] 10 mg PO HS 06/22/18 Zinc Oxide 20% Topical Oint 454 gm NR TID 06/22/18 Melatonin 5 mg PO HS PRN tab 06/23/18 Polyethylene Glycol 3350 [Miralax 119 gm Btl -] 17 gm PO BID bottle 06/23/18
[2018-06-23 19:06] VITALS: BP 100/62; PULSE 73; TEMP 97.6
--- NOTE | 2018-06-24 14:06 | EKG ---
Test Reason : Blood Pressure : / mmHG Vent. Rate : 102 BPM Atrial Rate : 102 BPM P-R Int : 150 ms QRS Dur : 082 ms QT Int : 344 ms P-R-T Axes : 064 064 019 degrees QTc Int : 448 ms POOR DATA QUALITY, INTERPRETATION MAY BE ADVERSELY AFFECTED SINUS TACHYCARDIA MINIMAL VOLTAGE CRITERIA FOR LVH, MAY BE NORMAL VARIANT BORDERLINE ECG WHEN COMPARED WITH ECG OF 17-FEB-2018 12:27, NO SIGNIFICANT CHANGE WAS FOUND Confirmed by ADENIKE UREÑA MD ([id number]) on 06/24/2018 2:06:23 PM Referred By: Confirmed By:ADENIKE UREÑA MD
== END 2018-06-23 18:45 ==
LOC: JER 23:13 → JERBED 06-22 02:18 → J5S 06-22 05:48
PROVIDERS: ADMIT Internal Medicine; ATTEND Internal Medicine
PROC: 3E0337Z Introduction of Electrolytic and Water Balance Substance into Peripheral Vein, Percutaneous Approach (ICD-10-PCS; principal; 2018-06-22)
PROC: 3E013GC Introduction of Other Therapeutic Substance into Subcutaneous Tissue, Percutaneous Approach (ICD-10-PCS; 2018-06-22)
PROC: 3E0F7GC Introduction of Other Therapeutic Substance into Respiratory Tract, Via Natural or Artificial Opening (ICD-10-PCS; 2018-06-22)
DX: K56.41 Fecal impaction (principal); R14.0 Abdominal distension (gaseous); D72.829 Elevated white blood cell count, unspecified; I10 Essential (primary) hypertension; E11.9 Type 2 diabetes mellitus without complications; K21.9 Gastro-esophageal reflux disease without esophagitis; I25.10 Atherosclerotic heart disease of native coronary artery without angina pectoris; D64.9 Anemia, unspecified; E78.5 Hyperlipidemia, unspecified; J44.9 Chronic obstructive pulmonary disease, unspecified; F25.9 Schizoaffective disorder, unspecified; F33.9 Major depressive disorder, recurrent, unspecified; F31.9 Bipolar disorder, unspecified; Z79.82 Long term (current) use of aspirin; Z79.84 Long term (current) use of oral hypoglycemic drugs; Z86.73 Personal history of transient ischemic attack (TIA), and cerebral infarction without residual deficits
CPT/HCPCS: 36415; 71045-TC-FY; 74177-TC; 80053; 81003; 82962; 83605; 83735; 84100; 85025; 85027; 85610; 87040; 93005; 93010; 94640; 96372; 99283-25; G0378; J1644; J7030; J7620